=== PATIENT | female | born 2000 | race Caucasian/White ===

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

== ENCOUNTER 2022-01-10 20:12 | Emergency (ER) | payer BC, OTHER, SELFPAY ==
--- NOTE | ~2022-01-10 | XR_ITS ---
EXAMINATION: XR TOES, LEFT CLINICAL INFORMATION: Hematoma to great toe COMPARISON: None TECHNIQUE: 3 views of the left toes were obtained. FINDINGS: Osseous alignment is anatomic. No acute fracture is seen. There is soft tissue swelling dorsally near the interphalangeal joint of the great toe. XR/XR toe LT min 2V IMPRESSION: No fracture identified. Soft tissue swelling of the great toe near the interphalangeal joint.
[2022-01-10 21:10] VITALS: BP 101/61; PULSE 62; RESP 18; TEMP 36.3; O2SAT 100; BMI 21.4
--- NOTE | 2022-01-11 02:00 | PC.NURSE ---
at bedside for primary eval.
--- NOTE | 2022-01-11 02:01 | ED.GENADULT ---
HPI - General Adult General Chief complaint: General Medical Stated complaint: both big toes bleeding and purple Time Seen by Provider: 01/11/22 00:15 Source: patient Mode of arrival: ambulatory Limitations: no limitations History of Present Illness HPI narrative: toe is black and swollen for the past 2 weeks. Patient is unclear about what trauma occurred Onset (ago): week(s) Severity: mild Quality: aching Pain Consistency: constant Associated symptoms: denies other symptoms Related Data Previous Rx's Medication Instructions Recorded acetaminophen 500 mg tablet 500 mg PO Q6H PRN #30 tab 12/06/21 doxycycline monohydrate 100 mg 100 mg PO BID 7 Days #14 cap 12/06/21 capsule ibuprofen 400 mg tablet 400 mg PO Q6-8H PRN #30 tab 12/06/21 naproxen 500 mg tablet (Naprosyn) 500 mg PO BID #20 tab 01/11/22 Allergies Allergy/AdvReac Type Severity Reaction Status Date / Time No Known Allergies Allergy Verified 01/10/22 21:10 Review of Systems Constitutional: Constitutional: Reports no additional constitutional complaints Eyes: Eyes: Reports no additional eye complaints ENT: Denies dizziness Cardiovascular: Cardiovascular: Reports no additional cardiovascular complaints Respiratory: Respiratory: Reports as per HPI Gastrointestinal: Gastrointestinal: Reports no additional gastrointestinal complaints Genitourinary: Genitourinary: Reports no additional female genitourinary complaints Musculoskeletal: Musculoskeletal: Reports no additional musculoskeletal complaints Integumentary/Breasts: Skin/Breast: Denies rash Neurologic: Reports system reviewed and no additional complaints, except as documented, Denies dizziness and Denies Sensory deficit (Neuro) Psychiatric: Psychiatric: Denies anxiety [facility] Social History Social History Patient Tobacco Use Status: Never used Tobacco Advance Directives: No Advance Directives Information Provided: No Physical Exam ED Vital Signs: Vital Signs - 24 hr 01/10/22 21:10 01/11/22 02:39 Temperature 97.4 F 98.3 F Pulse Rate 62 55 Respiratory Rate 18 16 Blood Pressure 101/61 100/52 L Pulse Oximetry 100 100 BMI result Body Mass Index 21.4 Const General: healthy appearing Nutritional Appearance: average body habitus Orientation/consciousness: oriented to person and patient oriented x3 Limitations: no limitations HENMT Head: Yes normal to inspection Ears: external ears normal General nose exam: Normal external nose present Mouth: Normal oral and palatal mucosa present and oropharynx normal Throat: Yes posterior oropharynx normal Eyes General: appearance normal, both eyes and all related structures Neck Neck: Yes normal visual inspection General: Yes no CVA tenderness Back/Spine/Pelvis Back: no CVA tenderness Skin Other: ecchymosis to great toe and blood under the nail Neuro General: oriented to person and patient oriented x3 Cranial nerves: Yes CN's II-XII intact bilaterally Motor exam (neuro): 5/5 motor strength present throughout Sensory Exam: No Sensory deficit (Neuro) Extrem Other: echymosis and tenderness to base of toe nail, no erythema or signs of infection. Psych Appearance: grossly normal Course Reevaluation(s) Reevaluation #1: patient with contusion to toe with small subungual hematoma, will dc on ice and nsaids Time: 03:24 Medical Decision Making Imaging Data toe xray: Radiologist's impression: IMPRESSION: No fracture identified. Soft tissue swelling of the great toe near the interphalangeal joint. Discharge Plan Discharge Clinical Impression: Contusion of great toe Patient Disposition: Home, Self-Care Instructions: Subungual Hematoma (ED), Contusion in Adults (ED) Prescriptions: New naproxen [Naprosyn] 500 mg tablet 500 mg PO BID Qty: 20 0RF No Action doxycycline monohydrate 100 mg capsule 100 mg PO BID 7 Days Qty: 14 0RF acetaminophen 500 mg tablet 500 mg PO Q6H PRN (Reason: pain) Qty: 30 0RF ibuprofen 400 mg tablet 400 mg PO Q6-8H PRN (Reason: pain) Qty: 30 0RF Referrals: Physician,None [Primary Care Provider] - 1 week
[2022-01-11 02:39] VITALS: BP 100/52; PULSE 55; RESP 16; TEMP 36.8; O2SAT 100
--- NOTE | 2022-01-11 02:43 | PC.NURSE ---
XRay at bedside.
== END 2022-01-11 03:44 | disposition home or self-care (01) ==
PROVIDERS: Emergency Provider Emergency Medicine
DX: S90.211A Contusion of right great toe with damage to nail, initial encounter (principal); S90.212A Contusion of left great toe with damage to nail, initial encounter; X58.XXXA Exposure to other specified factors, initial encounter; Y93.9 Activity, unspecified; Y92.9 Unspecified place or not applicable; Y99.9 Unspecified external cause status
CPT/HCPCS: 73660; 99282; 99283

== ENCOUNTER 2025-06-30 10:12 | Outpatient (REF) | payer OTHER, SELFPAY ==
--- OUTSIDE RECORDS SUMMARY | 2025-06-30 09:00 | XMS_ITS | Encounter Summary ---
Author Organization [employer] Address [address] [place] [address] Care Team Providers Care Overnight Stocker Name Role Phone Chris Maria G PRESCHOOL AIDE Primary Care Provider [phone] Encounter Details Date Type Department Care Team ([facility] st Contact Info) Description 06/30/2025 9:00 AM EST Office Visit [facility] [address] [place] [address] Maria G Perez FNP [address] [place] [address] Adult wellness visit (Primary Dx); Encounter for vaccination; Encounter for immunization Social History Tobacco Use Types Packs/Day Years Used Date Smoking Tobacco: Never Smokeless Tobacco: Current Tobacco Cessation:Ready to Q uit: Not Asked; Counseling Given: Not Answered Comments:Once daily Alcohol Answer Date Recorded How often do you have a drink containing alcohol ? 1 06/30/2025 How many drinks containing a lcohol do you have on a typical day when you are drinking? 0 06/30/2025 How often do you have six or more drinks on one occasion? 0 06/30/2025 Depression Answer Date Recorded Patient Health Questionnaire-9 Score 1 06/30/2025 Patient Health Questionnaire-9 Score 1 06/30/2025 Last PHQ-9: Questionnaire Data Not on file 1 08/30/2024 Housing Stability Answer Date Recorded What is your housing situation today? I have conchita abdi 06/30/[address] you li ve. Do you have problems with any of the following? None of the above 06/30/2025 Food Insecurity Answer Date Recorded Within the past 12 months, y ou worried that your food would run out before you got money to buy more: Never True 06/30/2025 Within the past 12 months,th e food you bought just didn't last and you didn't have enough money to get more: Never True 07/2025 Transportation Answer Date Recorded In the past 12 months, has l ack of transportation kept you from medical appts, meetings, work or from getting things needed for daily living? No 06/30/2025 Utilities Answer Date Recorded In the past 12 months, has t he electric, gas, oil or water company threatened to shut off services in your home? No 06/30/2025 Depression Answer Date Recorded Patient Health Questionnaire-2 Score 0 06/30/2025 Internet Access Answer Date Recorded Internet Access Q1 Yes 06/30/2025 Internet Access Q2 Not on file 06/30/2025 Comments Unknown Sex and Gender Information Value Date Recorded Sex Assigned at Female 06/18/2022 10:20 AM EDT Legal Sex Female 10:20 AM EDT Gender Identity Female 04/16/2025 3:51 PM EDT Sexual Orientation Straight 06/18/2022 10 :20 AM EDT documented as of this encounter Last Filed Vital Signs Vital Sign Reading Time Taken Comments Blood Pressure 100/62 06/30/2025 9:02 AM EST Pulse 64 06/30/2025 9:02 AM EST Temperature 36.7 C (98 F) 06/30/2025 9:02 AM EST Respiratory Rate 14 06/30/2025 9:02 AM EST Oxygen Saturation 97% 06/30/2025 9:02 AM EST Inhaled Oxygen Concentration - - Weight 61.9 kg (136 lb 9 oz) 06/30/2025 9:02 AM EST Height 167.6 cm (5' 6 ) 06/30/2025 9:02 AM EST Body Mass Index 22.04 06/30/2025 9:02 AM EST documented in this encounter Functional Status * Over the past 2 weeks, how often have you been bothered by any of the following problems? Question Answer Date of Assessment Author Patient Health Questionnaire -2 Score 0 06/30/2025 9:04 AM EST Chel Perry MA * Little interest or pleasure in doing things Answer Date of Assessment Author Not at all 06/30/2025 9:04 AM EST Oscar Perry MA * Feeling down, depressed, or hopeless Answer Date of Assessment Author Not at all 06/30/2025 9:04 AM Oscar Kessler MA * Trouble falling or staying asleep, or sleeping too much Answer Date of Assessment Author Not at all 06/30/2025 9:04 AM Oscar Kessler MA * Feeling tired or having little energy Answer Date of Assessment Author Not at all 06/30/2025 9:04 AM Oscar Kessler MA * Poor appetite or overeating Answer Date of Assessment Author Several days 06/30/2025 9:04 AM Oscar Kessler MA * Feeling bad about yourself - or that you are a failure or have let yourself or your family down Answer Date of Assessment Author Not at all 06/30/2025 9:04 AM Oscar Kessler MA * Trouble concentrating on things, such as reading the newspaper or watching television Answer Date of Assessment Author Not at all 06/30/2025 9:04 AM Oscar Kessler MA * Moving or speaking so slowly that other people could have noticed? Or the opposite - being so fidgety or restless that you have been moving around a lot more than usual. Answer Date of Assessment Author Not at all 06/30/2025 9:04 AM Oscar Kessler MA * Thoughts that you would be better off or hurting yourself in some way Answer Date of Assessment Author Not at all 06/30/2025 9:04 AM Oscar Kessler MA * Patient Health Questionnaire-9 Score Answer Date of Assessment Author 1 06/30/2025 9:04 AM Oscar Kessler MA * Over the last 2 weeks, how often have you been bothered by any of the following problems? Question Answer Date of Assessment Author Feeling nervous, anxious, or on edge 0 06/30/2025 10:02 AM Chel Kessler MA Not being able to stop or co ntrol worrying 0 06/30/2025 10:02 AM Chel Kessler MA Worrying too much about diff erent things 1 06/30/2025 10:02 AM Chel Kessler MA Trouble relaxing 0 06/30/2025 10:02 AM Chel Kessler MA Being so restless that it is hard to sit still 0 06/30/2025 10:02 AM Chel Kessler MA Becoming easily annoyed or irritable 0 06/30/2025 10:02 AM Chel Kessler MA Feeling afraid as if somethi ng awful might happen 0 06/30/2025 10:02 AM Chel Kessler MA MANUEL-7 Total Score 1 06/30/2025 10:02 AM Chel Kessler MA * How difficult have these problems made it for you to do your work, take care of things at home, or get along with other people? Answer Date of Assessment Author Not difficult at all 06/30/2025 9:04 AM Chel Deleon MA documented as of this encounter Plan of Treatment Upcoming Encounters Date Type Department Care Team (Late st Contact Info) Description 07/07/2025 9:30 AM EST Clinical Support [facility] [address] [place] [id number] Scheduled Orders Name Type Priority Associated Diagnoses Orde r Schedule Chlamydia/N. Gonorrhoeae, PCR, Urine Lab Routine Adult wellness visit Ordered: 06/30/2025 Comprehensive Metabolic Panel Lab Routine Adult wellness visit Expected: 06/30/2025 (Approximate), Expires: 06/30/2026 Hepatitis B Core Antibody, Total Lab Routine Adult wellness visit Expected: 06/30/2025 (Approximate), Expires: 06/30/2026 Hepatitis B Surface Antibody, Qualitative Lab Routine Adult wellness visit Expected: 06/30/2025 (Approximate), Expires: 06/30/2026 Hepatitis B surface antigen, EIA Lab Routine Adult wellness visit Expected: 06/30/2025 (Approximate), Expires: 06/30/2026 Hepatitis C Antibody with Reflex to HCV, RNA, Quantitative, Real-Time PCR Lab Routine Adult wellness visit Expected: 06/30/2025, Expires: 06/30/2026 CBC auto differential Lab Routine Adult wellness visit Expected: 06/30/2025 (Approximate), Expires: 06/30/2026 HIV-1/2 Antigen and Antibodies, Fourth Generation, with Reflexes Lab Routine Adult wellness visit Expected: 06/30/2025 (Approximate), Expires: 06/30/2026 Lipid Panel, Standard Lab Routine Adult wellness visit Expected: 06/30/2025 (Approximate), Expires: 06/30/2026 Vitamin D, 25-Hydroxy, Total, Immunoassay Lab Routine Adult wellness visit Expected: 06/30/2025 (Approximate), Expires: 06/30/2026 T-SPOT .TB Lab Routine Adult wellness visit Expected: 06/30/2025 (Approximate), Expires: 06/30/2026 documented as of this encounter Visit Diagnoses Diagnosis Adult wellness visit- Primary Encounter for vaccination Encounter for immunization documented in this encounter Additional Health Concerns Assessment Noted Time PHQ-9 Depression Total Score: 1 06/30/20 9:04 AM EST documented as of this encounter Care Teams Overnight Stocker Relationship Specialty Start Date End Date Maria G Perez FNP [address] [place] [id number] PCP - General Family Medicine 06/30/25 documented as of this encounter
[2025-06-30 11:59] LABS: MANUAL DIFF FLAG NO
--- OUTSIDE RECORDS SUMMARY | 2025-06-30 12:01 | XMS_ITS | Clinical Summary ---
Author Organization [facility] Address [address] [place] [address] Phone Care Team Providers Care Firefighter Type One Name Role Phone Unavailable Primary Care Provider Unavailabl e Immunizations Immunization Administration Dates Next Due DTaP 5 04/15/2006, 3,07/08/2002,05/04/2002 ,03/03/2002 Hep B, ped/adol 10/01/2002,02/02/2002,2001 Hib (PRP-T) 04/02/2003,07/08/2002,05/04/2002 ,03/03/2002 IPV 04/15/2006,10/01/2002,05/04/2002 ,03/03/2002 Influenza, injectable, trivalent 08/06/2003 MMR 04/15/2006,01/05/2003 Pneumococcal Conjugate 08/06/2003,07/08/2002,,03/03/2002 Varicella 01/05/2003 Social History Tobacco Use Types Packs/Day Years Used Date Smoking Tobacco: Never Assessed Comments Unknown Sex and Gender Information Value Date Recorded Sex Assigned at Not on file Legal Sex Female 4:22 PM EDT Gender Identity Not on file Sexual Orientation Not on file Plan of Treatment Health Maintenance Due Date Last Done Comments Varicella Vaccines (2 of 2 - 2-dose childhood series) 05/13/2006 01/05/2003 DTaP,Tdap,and Td Vaccines (6 - Tdap) 2012 04/15/2006, 08/06/2003, 07/08/2002, Additional history exists HPV Vaccines (1 - 3-dose series) 2016 Men B Vaccine (1 of 2 - Standard) 2017 Influenza Vaccines (#1) 2025 08/06/2003 COVID-19 Vaccine ( season) 2025 Hepatitis B Vaccines Completed 10/01/2002, 02/02/2002, 2001 HIB Vaccines Completed 04/02/2003, 06/20, 05/04/2002, Additional history exists Pneumococcal Vaccine Completed 08/06/2003, 07/08/2002, 05/04/2002, Additional history exists IPV Vaccines Completed 04/15/2006, 09/19, 05/04/2002, Additional history exists MMR Vaccines Completed 04/15/2006, 01/05/2003 Hepatitis A Vaccines Aged Out No long er eligible based on patient's age to complete this topic Meningococcal Vaccine Aged Out No gaurav loni eligible based on patient's age to complete this topic
--- OUTSIDE RECORDS SUMMARY | 2025-06-30 12:01 | XMS_ITS | Encounter Summary ---
Author Organization [facility] Address [address] [place] [phone] Phone Care Team Providers Care Player Services Representative Name Role Phone Gayathri Way NP Primary Care Provider Naveen preston Encounter Details Date Type Department Care Team (Late st Contact Info) Description 04/04/2017 Conversion Encounter [facility] - [address] [address] Social History Tobacco Use Types Packs/Day Years Used Date Smoking Tobacco: Never Assessed Comments Unknown Sex and Gender Information Value Date Recorded Sex Assigned at Not on file Legal Sex Female 4:22 PM EDT Gender Identity Not on file Sexual Orientation Not on file documented as of this encounter Plan of Treatment Not on file documented as of this encounter Visit Diagnoses Not on filedocumented in this encounter Care Teams Player Services Representative Relationship Specialty Start Date End Date Gayathri Way NP PCP - General 03/29/17 09/27/22 documented as of this encounter
--- OUTSIDE RECORDS SUMMARY | 2025-06-30 12:01 | XMS_ITS | Encounter Summary ---
Author Organization [employer] Address [address] [place] [address] Care Team Providers Care Management Supervisor Name Role Phone Maria G Perez MAIL HANDLER Primary Care Provider [phone] Encounter Details Date Type Department Care Team (Latest Contact Info) Description 06/30/2025 Travel Social History Tobacco Use Types Packs/Day Years Used Date Smoking Tobacco: Never Smokeless Tobacco: Current Comments:Once daily Alcohol Answer Date Recorded How [...] AM EDT documented as of this encounter Functional Status * Over the past 2 weeks, how often have you been bothered by any of the following problems? Question Answer Date of Assessment Author Patient Health Questionnaire -2 Score 0 06/30/2025 9:04 AM Chel Kessler MA * Little interest or pleasure in doing things Answer Date of Assessment Author Not at all 06/30/2025 9:04 AM Oscar Kessler MA * Feeling down, depressed, or hopeless [...] Description 07/07/2025 9:30 AM EST Clinical Support [facility] [address] [place] [address] documented as of this encounter Visit Diagnoses Not on filedocumented in this encounter Additional Health Concerns Assessment Noted Time PHQ-9 Depression Total Score: 1 06/30/20 9:04 AM EST documented as of this encounter Care Teams Management Supervisor Relationship Specialty Start Date End Date Maria G Perez FNP [address] [place] [address] PCP - General Family Medicine 06/30/25 documented as of this encounter
--- OUTSIDE RECORDS SUMMARY | 2025-06-30 12:01 | XMS_ITS | Clinical Summary ---
Author Organization [employer] Address [address] [place] [address] [address] [place] [address] Care Team Providers Care Marketing Liaison Name Role Phone Maria G Perez Primary Care Provider [phone] Medications No known medications Active Problems No known active problems Encounters Date Type Department Care Team Description 06/30/2025 9:00 AM EST Office Visit [address] [address] Maria G Perez FNP Adult wellness visit (Primary Dx); Encounter for vaccination; Encounter for immunization 06/30/2025 Travel 06/29/[address] [address] Maria G Perez FNP Chart Prep 06/23/2025 Patient Outreach [facility] [address] [place] [address] Maria G Perez FNP Pre-visit Planning ([facility]OH unable to reach [facility]) 05/18/[address] [address] Gianluca Baig MD Call Back Request; [facility] - New Patient Assistance 04/16/[address] [address] Gianluca Baig MD New Patient Request from Last 3 Months Immunizations Immunization Administration Dates Next Due DTaP, 5 pertussis antigens 04/15/2006,,07/08/2002,2001,03/03/2002 Hep B, Adolescent or Pediatric 10/01/2002,2001,2001 Hib (PRP-T) 04/02/2003, 2,05/04/2002,2001 IPV 04/15/2006, 3,05/04/2002,2001 Influenza Injectable Quadriv alant Preservative Free IIV4 MDCK 09/28/2020 Influenza, IIV3, injectable 08/06/2003 Influenza, seasonal, injecta ble, preservative free 06/30/2025 MMR 04/15/2006,01/05/2003 Pfizer Covid-19 Vaccine 12+ 06/30/2025 Pneumococcal Conjugate PCV 7 08/06/2003, 07/08/2002,05/04/2002,2001 Varicella 01/05/2003 Family History Medical History Relation Name Comments Cancer Maternal Grandmother Hypertension Mother Relation Name Status Comments Maternal Grandmother Mother Social History Tobacco Use Types Packs/Day Years [...] Orientation Straight 06/18/2022 10 :20 AM EDT Last Filed Vital Signs Vital Sign Reading [...] Mass Index 22.04 06/30/2025 9:02 AM EST Plan of Treatment Upcoming Encounters Date Type Department Care Team (Late st Contact Info) Description 07/07/2025 9:30 AM EST Clinical Support [address] [address] Health Maintenance Due Date Last Done Comments Chlamydia and Gonorrhea Screening 2001 HIV Screening 2001 Lipid Panel 2001 Meningococcal Vaccine (1 - Risk 2-dose series) 12/31/2003 Meningococcal B Vaccine (1 of 4 - Increased Risk) 12/31/2011 DTaP/Tdap/Td Vaccines (6 - Tdap) 2012 04/15/2006, 08/06/2003, 07/08/2002, Additional history exists Family Planning (PISQ) 2016 HPV Vaccines (1 - 3-dose series) 2016 Hepatitis C Screening 12/31/2019 Pap Smear 2022 Alcohol/Substance Use Screening 06/30/2026 06/30/2025 Depression Screening 06/30/2026 06/30/2025, 06/30/20 Disability Screening 06/30/2026 06/30/2025 SDOH Screening 06/30/2026 06/30/2025 Tobacco Screening 06/30/2026 06/30/2025 Zoster Vaccines (1 of 2) 12/31/2051 RSV Patients and Patients Aged 60 years or older (1 - 1-dose 75+ series) 2076 Hepatitis B Vaccines Completed 10/01/2002, 02/02/2002, 2001 HIB Vaccines Completed 04/02/2003, 06/20, 05/04/2002, Additional history exists Pneumococcal Vaccine: Pediatrics (0 to 5 Years) and At-Risk Patients (6 to 49) Years Aged Out 08/06/2003, 07/08/2002, 05/04/2002, Additional history exists No longer eligible based on patient's age to complete this topic IPV Vaccines Completed 04/15/2006, 09/19, 05/04/2002, Additional history exists COVID-19 Vaccine Completed 06/30/2025 Influenza Vaccine Completed 06/30/2025, , 08/06/2003 Hepatitis A Vaccines Aged Out No long er eligible based on patient's age to complete this topic RSV under 20 months Aged Out No longe r eligible based on patient's age to complete this topic Rotavirus Vaccines Aged Out No longer eligible based on patient's age to complete this topic Insurance [facility] [place] [id number] Care Teams Marketing Liaison Relationship Specialty Start Date End Date Maria G Perez FNP [address] [place] [phone] PCP - General Family Medicine 06/30/25
--- OUTSIDE RECORDS SUMMARY | 2025-06-30 12:01 | XMS_ITS | Encounter Summary ---
Author Organization [employer] Address [address] [place] [address] Care Team Providers Care Insight Leader Name Role Phone Unavailable Primary Care Provider Unavailabl e Reason for Visit * Reason Onset Date Comments Chart Prep 06/29/2025 Encounter Details Date Type Department Care Team ([facility] st Contact Info) Description 06/29/2025 Telephone [facility] [address] [place] [address] Maria G Perez FNP [address] [place] [address] Chart Prep Social History Tobacco Use Types Packs/Day Years Used Date Smoking Tobacco: Never Assessed Alcohol Answer Date Recorded How often do [...] enough money to get more: Never True 11/ 07/2025 Transportation Answer Date Recorded In the [...] AM EDT documented as of this encounter Miscellaneous Notes * Telephone Encounter - Laurie Cline MA - 06/29/2025 9:19 AM EST Chart Prep Labs: not applicable Images: not applicable Referrals: not applicable Vaccines due: Covid, Flu, Tdap, MCV4, and HPV Screenings: pap smear and Hep C, HIV, Chlamydia and Gonorrhea. LMP. Overdue care gaps: SBIRT, SDOH, PHQ-9, MANUEL-7, Oral health screening, Disability screen, and Tobacco documented in this encounter Plan of Treatment Upcoming Encounters Date Type Department Care Team (Late st Contact Info) Description 07/07/2025 9:30 AM EST Clinical Support [facility] [address] [place] [phone] documented as of this encounter Visit Diagnoses Not on filedocumented in this encounter
[2025-06-30 12:10] LABS: Hematocrit 40.6 % (37.0-47.0); Hemoglobin 12.9 g/dl (12.0-16.0); Imm Gran Abs Auto 0.01 X10*3/uL (0.00-0.03); Imm Gran Pct Auto 0.2 % (0.0-0.4); Lymphocytes Absolute Auto 2.4 X10*3/uL (1.2-4.9); Mean Corpuscular HGB Conc 31.8 g/dl (31.0-35.0); Mean Corpuscular Hemoglobin 29.1 pg (27.0-33.0); Mean Corpuscular Volume 91.6 fL (80.0-98.0); NRBC Abs Auto 0.000 X10*3/uL (0.0-0.012); NRBC Pct Auto 0.0 /100WBC (0.0-0.2); Platelet Count 348 X10*3/uL (160-400); Red Blood Count 4.43 X10*6/uL (4.20-5.50); White Blood Count 5.2 X10*3/uL (4.8-10.8)
[2025-06-30 12:57] LABS: HBS Num1 2.50 mIU/mL (0-7.99); HBc Num1 0.11 S/CO (0.00-0.79); HBsAGNum1 0.39 S/CO (0.00-0.99); HIV Num 1 0.06 S/CO (0.00-0.99); Hepatitis B Surface Antigen Negative (Negative); ~HepC Num1 0.06 S/CO (0.00-0.79); ~Hepatitis B Surface Antibody NONREACTIVE (Nonreactive); ~Hepatitis C Antibody Nonreactive (Nonreactive)
[2025-06-30 13:07] LABS: Alanine Aminotransferase 20 U/L (0-31); Albumin Level 5.3 g/dL (3.5-5.0); Alkaline Phosphatase 67 U/L (39-117); Anion Gap 11 (12-20); Aspartate Amino Transferase 30 U/L (5-31); Blood Urea Nitrogen 12 mg/dL (9-16); Calcium 9.8 mg/dL (8.4-10.2); Carbon Dioxide 26 mmol/L (22-29); Chloride 105 mmol/L (96-108); Cholesterol 199 mg/dL (<200); Estimated Glomerular Filt Rate > 60; HDL Cholesterol 80 mg/dL (>40); Potassium 3.8 mmol/L (3.3-5.1); Sodium 138 mmol/L (135-145); Total Protein 8.2 g/dL (6.5-8.0); Triglycerides 45 mg/dL (<150)
[2025-06-30 13:52] LABS: CT PCR Urine NOT DETECTED (Not Detect.); NG PCR Urine NOT DETECTED (Not Detect.)
[2025-07-03 18:03] LABS: TS Negative Control Passed; TS Panel A 0; TS Panel B 0; TS Positive Control Passed; TSpotTB Negative (Negative)
== END 2025-06-30 10:13 | disposition home or self-care (01) ==
LOC: HO.HHCL 10:12
PROVIDERS: PCP Nurse Practitioner Family; Visit Provider Nurse Practitioner Family
DX: Z00.00 Encounter for general adult medical examination without abnormal findings (principal); Z11.4 Encounter for screening for human immunodeficiency virus [HIV]; Z20.6 Contact with and (suspected) exposure to human immunodeficiency virus [HIV]; Z20.2 Contact with and (suspected) exposure to infections with a predominantly sexual mode of transmission; Z13.21 Encounter for screening for nutritional disorder; Z13.6 Encounter for screening for cardiovascular disorders
CPT/HCPCS: 80053; 80061; 82306; 85025; 86481; 86704; 86706; 86803; 87340; 87389; 87491; 87591

== ENCOUNTER 2025-07-27 08:49 | Inpatient (IN) | payer OTHER, SELFPAY ==
[2025-07-27] VITALS (14 sets, daily range): BP systolic 94–123; BP diastolic 50–74; PULSE 78–120; RESP 15–27; TEMP 36.7–39.5; O2SAT 95–100; BMI 21.9
--- NOTE | ~2025-07-27 | CT_ITS ---
EXAMINATION: CT ABDOMEN PELVIS WITH IV CONTRAST HISTORY: urinary sx septic COMPARISON: There are no prior studies for available comparison. TECHNIQUE: CT scan of the abdomen and pelvis was performed following administration of 85 mL Omnipaque 350 using standard departmental protocol. Coronal and sagittal reformatted images were generated and reviewed. Oral contrast material was not administered at the request of the referring physician. This CT exam was performed with one or more of the following dose reduction techniques: automated exposure control, adjustment of the mA and/or kV according to patient size, use of iterative reconstruction technique. DLP: 110 mGy-cm FINDINGS: LOWER CHEST: The visualized lung bases are clear. There is no pleural effusion. CARDIOVASCULATURE: The heart is normal in size. There is no pericardial effusion. LIVER: The liver is normal in size and contour. No liver mass is identified. The hepatic and portal veins are patent. There is periportal edema. GALLBLADDER / BILE DUCTS: There is pericholecystic fluid. No calcified gallstones are identified. There is no intra or extrahepatic biliary ductal dilatation. SPLEEN: The spleen is normal in size. No focal splenic lesion is identified. PANCREAS: The pancreas is unremarkable in appearance. ADRENAL GLANDS: Within normal limits. KIDNEYS/RETROPERITONEUM: There is heterogeneous perfusion of the right kidney, consistent with acute pyelonephritis. No renal calculi are identified. There is no hydronephrosis. No renal masses are identified. LYMPH NODES: No abdominal or pelvic lymphadenopathy. VASCULATURE: The abdominal aorta is normal in caliber. MESENTERY/PERITONEUM: There is right perinephric edema as well as fluid in the right paracolic gutter. There is no free intraperitoneal gas. STOMACH: The stomach is collapsed, limiting evaluation. SMALL BOWEL: The small bowel is normal in caliber. COLON: The colon is unremarkable. APPENDIX: Normal. URINARY BLADDER/PELVIC ORGANS: The urinary bladder is unremarkable. The uterus and ovaries are unremarkable. BONES / SOFT TISSUES: No suspicious bony or soft tissue abnormalities. CT/CT abdomen pelvis w IV con IMPRESSION: Acute right pyelonephritis. Electronically signed by: Eric North MD 07/27/2025 10:47 AM [facility] [facility] [place]
--- NOTE | ~2025-07-27 | US_ITS ---
EXAMINATION: US ABDOMEN LIMITED CLINICAL INFORMATION: Elevated LFTs. COMPARISON: Correlated to CT dated August 06, 2025. TECHNIQUE: Real-time ultrasound of the gallbladder using grayscale and color Doppler technique. FINDINGS: Gallbladder is contracted. Trace of pericholecystic fluid. Gallbladder wall measures 2 m maximal thickness. Common bile duct measures 2 mm. No gross ascites, right upper quadrant abdomen. US/US abdomen limited IMPRESSION: Contracted gallbladder. No cholelithiasis. Trace of pericholecystic fluid. Normal common bile duct. Electronically signed by: Matt Smith MD 07/28/2025 03:57 PM EST
--- NOTE | 2025-07-27 09:19 | ECG_ITS ---
Test Reason : TACHYCARDIA Blood Pressure : */* mmHG Vent. Rate : 109 BPM Atrial Rate : 109 BPM P-R Int : 150 ms QRS Dur : 72 ms QT Int : 302 ms P-R-T Axes : 75 97 13 degrees QTcB Int : 406 ms Sinus tachycardia Rightward axis Borderline ECG No previous ECGs available Referred By: Alma Coreas Electronically Signed By: JES BARR MD
[2025-07-27 09:39] LABS: MANUAL DIFF FLAG NO
[2025-07-27 09:40] LABS: Hematocrit 35.5 % (37.0-47.0); Hemoglobin 11.9 g/dl (12.0-16.0); Imm Gran Abs Auto 0.08 X10*3/uL (0.00-0.03); Imm Gran Pct Auto 0.5 % (0.0-0.4); Lymphocytes Absolute Auto 1.2 X10*3/uL (1.2-4.9); Mean Corpuscular HGB Conc 33.5 g/dl (31.0-35.0); Mean Corpuscular Hemoglobin 29.2 pg (27.0-33.0); Mean Corpuscular Volume 87.2 fL (80.0-98.0); NRBC Abs Auto 0.000 X10*3/uL (0.0-0.012); NRBC Pct Auto 0.0 /100WBC (0.0-0.2); Platelet Count 304 X10*3/uL (160-400); Red Blood Count 4.07 X10*6/uL (4.20-5.50); White Blood Count 15.3 X10*3/uL (4.8-10.8)
[2025-07-27] MEDS: 0.9 % Sodium Chloride 1,845 ML 1845 ML IV (09:40)
[2025-07-27 09:45] LABS: UPreg QC Valid YES
--- NOTE | 2025-07-27 09:50 | ED_ITS ---
HPI - Female Genitourinary General Chief complaint: Urogenital-Female Stated complaint: Urinary Symptoms Time Seen by Provider: 07/27/25 09:19 Source: patient Mode of arrival: ambulatory Limitations: no limitations History of Present Illness ED Provider: PAT Garcia HPI Narrative: Chief Complaint: ?Urinary frequency, burning, and pelvic discomfort.? History of Present Illness: 24-year-old female presents with three days of worsening urinary symptoms. She was evaluated at an urgent care on for a urinary tract infection and started on oral Bactrim, with initial improvement. She has been taking Bactrim as prescribed. Over the past few days, symptoms have progressively worsened reports right rib pain . She reports urinary frequency, dysuria/burning, pelvic discomfort, and subjective fevers with chills. She denies flank pain. She ?does not feel well at all.? Related Data Previous Rx's ?Medication ?Instructions ?Recorded acetaminophen 500 mg tablet 500 mg PO Q6H PRN pain #30 tabs 12/06/21 doxycycline monohydrate 100 mg 100 mg PO BID 7 days #1 4 caps 12/06/21 capsule ibuprofen 400 mg tablet 400 mg PO Q6-8H PRN pain #30 tabs 12/06/21 naproxen 500 mg tablet (Naprosyn) 500 mg PO BID #20 ta bs 01/11/22 Allergies Allergy/AdvReac Type Severity Reaction Status Date / Time No Known Allergies Allergy Verified 07/27/25 09:16 Review of Systems 2 Review of Systems: Yes all other systems are reviewed and are negative PMFSH Past Medical History Attestation statement: The following information was validated with the patient. Source: old records reviewed and nursing notes reviewed Social History Social History Patient Tobacco Use Status: Never used Tobacco Smoked in Last 30 Days: No Use of substances other than those prescribed or required for medical reasons: No Advance Directives: No Advance Directives Information Provided: Yes Patient : No Physical Exam 2 Exam: Exam: Appearance: Alert.? Oriented X3.? No acute distress.? Head: Normocephalic, atraumatic, no step-offs or deformities Eyes: Pupils equal, round and reactive to light.? Neck: Normal inspection.? Neck supple.? CVS: Normal heart rate and rhythm.? Pulses normal.? Respiratory: No respiratory distress.? Breath sounds normal.? Abdomen: Soft and nontender.? Skin: Skin warm and dry.? Normal skin color.? Normal skin turgor.? Extremities: No lower extremity edema.? No calf ttp. 5/5 strength to bilateral upper and lower extremities Back: No midline tenderness, no C-spine tenderness, full range of motion, no CVA tenderness bilaterally Neuro: Oriented X 3.? No motor deficit.? No sensory deficit. CN 2-12 intact Vital Signs: Vital Signs: Last Vital Signs Temp 99.0 F 07/27/25 09:48 Pulse 97 07/27/25 10:08 Resp 18 07/27/25 10:08 BP 115/74 07/27/25 10:08 Pulse Ox 100 07/27/25 10:08 O2 Del Method Room Air 07/27/25 10:08 BMI result Body Mass Index 21.9 vss Course Reevaluation(s) Reevaluation #1: Chemistry with no acute electrolyte abnormalities needing intervention. She is noted to have a slight bump in her transaminases likely secondary to sepsis. Her lactic acid is elevated 2.3. CBC with leukocytosis and left shift. Sepsis focused exam done. Patient's blood pressure responding well to fluids. Time: 10:00 Reevaluation #2: Patient's CT showing right-sided pyelonephritis patient was covered with ceftriaxone. Plan will admit to the hospitalist team Time: 10:57 Medications Administered Discontinued Medications Generic Name Dose Route Start Last Admin Trade Name Freq PRN Reason Stop Dose Admin Sodium Chloride 1,845 mls @ 1,845 mls/hr 07/27/25 09:20 07/27/25 09:40 Ns 30 ml/kg infuse over 1 hr (1845 ml) 07/27/25 10:19 1,845 mls/hr IV Administration .Q1H STA Acetaminophen 1,000 mg in 100 mls @ 400 mls/hr 07/27/25 09:20 07/27/25 10:07 Ofirmev IV 07/27/25 09:34 Infused ONCE ONE Infusion Ceftriaxone Sodium 1 gm/ 50 mls @ 100 mls/hr 07/27/25 09:20 07/27/25 10:20 Sodium Chloride IV 07/27/25 09:49 Infused ONCE ONE Infusion Iohexol 100 ml 07/27/25 10:25 07/27/25 10:26 Iohexol 350 Mg/Ml 100 Ml Infus..Btl IV 07/27/25 10:26 85 ml ONCE ONE Administration Morphine Sulfate 4 mg 07/27/25 09:59 07/27/25 10:02 Morphine Sulfate 4 Mg/Ml Cartridge IVPUSH 07/27/25 10:00 4 mg ONCE ONE Administration Protocol Medical Decision Making Medical Decision Making [facility] Narrative: 0935 24-year-old female with urinary symptoms and abnormal vital signs concerning for evolving urosepsis. Problem #1: Suspected Urosepsis (complicated urinary tract infection) Assessment: Worsening urinary frequency, burning, pelvic discomfort, subjective fevers/chills, and abnormal vital signs (tachycardia, tachypnea, fever) despite outpatient Bactrim?concerning for progression to urosepsis. Plan: * Initiate empiric IV antibiotics: ceftriaxone 1 g IV x1 now. * Fluid resuscitation: 30 cc/kg bolus of normal saline. * Continue monitoring and reassess response to therapy. Differential Diagnosis Differential Diagnoses: The differential diagnosis associated with the presentation includes (Differential Diagnosis - Urosepsis / complicated urinary tract infection (primary) - Pyelonephritis - Antibiotic-resistant urinary tract infection - Non-infectious cystitis (e.g., interstitial cystitis) - Vaginitis (e.g., yeast or trichomonas) - Sexually transmitted infection (e.g., chlamydia, gonor) Admission/Observation Consideration of admission/observation: Escalation of care including admission/observation considered Lab Data [facility] Lab Attestation statement: I reviewed the patient's lab results. 07/27/25 09:26 Labs: Lab Results 07/27/25 07/27/25 Range/Units 09:26 09:26 WBC 15.3 H (4.8-10.8) X10*3/uL RBC 4.07 L (4.20-5.50) X10*6/uL Hgb 11.9 L (12.0-16.0) g/dl Hct 35.5 L (37.0-47.0) % MCV 87.2 (80.0-98.0) fL MCH 29.2 (27.0-33.0) pg MCHC 33.5 (31.0-35.0) g/dl RDW 14.3 (11.0-16.0) % Plt Count 304 (160-400) X10*3/uL MPV 9.8 (9.4-12.3) fL Immature Gran % (Auto) 0.5 H (0.0-0.4) % Neut % (Auto) 82.9 H (45-73) % Lymph % (Auto) 7.8 L (20-40) % [place] % (Auto) 8.4 (2-11) % Eos % (Auto) 0.1 (0-4) % Baso % (Auto) 0.3 (0-2) % Lymph # (Auto) 1.2 (1.2-4.9) X10*3/uL [place] # (Auto) 1.3 H (0.1-1.2) X10*3/uL Eos # (Auto) 0.0 (0.0-0.4) X10*3/uL Baso # (Auto) 0.0 (0.0-0.2) X10*3/uL Abs Immat Gran (auto) 0.08 H (0.00-0.03) X10*3/uL Absolute Neuts (auto) 12.7 H (2.0-8.3) x10*3/uL Absolute Nucleated RBC 0.000 (0.0-0.012) X10*3/uL Nucleated RBC % (auto) 0.0 (0.0-0.2) /100WBC Lactic Acid 2.3 H* Cancelled (0.5-2.0) mmol/L Magnesium 1.9 (1.6-2.6) mg/dL Total Bilirubin 0.9 (0.0-1.0) mg/dL Direct Bilirubin 0.3 (0.0-0.5) mg/dL AST 65 H (5-31) U/L ALT 45 H (0-31) U/L Alkaline Phosphatase 150 H (39-117) U/L Total Protein 7.9 (6.5-8.0) g/dL Albumin 4.5 (3.5-5.0) g/dL Lipase 20 (8-78) U/L Urine Test NEGATIVE (NEGATIVE) Influenza Type A (PCR) NEGATIVE (Negative) Influenza Type B (PCR) NEGATIVE (Negative) RSV RNA Qual (PCR) NEGATIVE (Negative) SARS-CoV-2 RNA (RT-PCR) NEGATIVE (Negative) Independent Interpretation I performed an independent interpretation of an: CT Scan (CT/CT abdomen pelvis w IV con IMPRESSION: Acute right pyelonephritis. ) Radiology Impression Discussion of test interpretation with radiology: I have reviewed the radiologist's reading. External Record Review External record reviewed: Inpatient record, Office record, Outpatient record, Prior outpatient labs, Prior outpatient radiology, Primary care record and Outside ED record Critical Care Time Critical Care Time Critical Care Time: Yes Total Critical Care Time: 35 Attestation: I attest to this time spent taking care of the patient, obtaining history, physical, reviewing labs, imaging, treatment of patients condition +/- specialist/hospitalist consult +/- procedure Discharge Plan Discharge Clinical Impression: Urinary tract infection, Pyelonephritis, Sepsis Patient Disposition: Admitted As Inpatient Print Language: Portuguese
[2025-07-27 09:57] LABS: Alanine Aminotransferase 45 U/L (0-31); Albumin Level 4.5 g/dL (3.5-5.0); Alkaline Phosphatase 150 U/L (39-117); Aspartate Amino Transferase 65 U/L (5-31); Lipase 20 U/L (8-78); Magnesium 1.9 mg/dL (1.6-2.6); Total Protein 7.9 g/dL (6.5-8.0)
[2025-07-27 10:21] LABS: Resp Syncy Virus RNA Qual PCR NEGATIVE (Negative); SARS COV2 PCR INHOUSE NEGATIVE (Negative)
[2025-07-27] MEDS: iohexoL 350 MG/ML 100 ML INFUS..BTL IV (10:26)
--- NOTE | 2025-07-27 11:31 | P.HPHOSP_ITS ---
History of Present Illness Date of Service: 07/27/25 Chief Complaint: pain 24 year old women with no significant medical history presented to the ED with worsening urinary symptoms. She was treated for a UTI last at an urgent care office. She was started on Bactrim. She felt better the first few days but then had returning right rib pain, urinary frequency, dysuria, burning, nausea, pelvic pain and fevers. She denied flank pain but abd ct showed acute pyelonephritis. She mentioned that this is her 3rd UTI. Noted to have elevated white blood cell count, fever, tachycardia, transaminitis, lactic acidosis. She was started on IV Rocephin and she will be admitted for management of acute pyelonephritis. Review of Systems 2 Review of Systems: Denies any recent fever chills or decrease in appetite respiratory denies any shortness of breath or cough cardiovascular denied chest pain gastrointestinal denies any dysphagia abdominal pain, vomiting or diarrhea genitourinary see HPI musculoskeletal denies any joint pain or swelling neuropsych denies any weakness or seizures all other systems reviewed are negative PMFSH Social History Patient Tobacco Use Status: Never used Tobacco Smoked in Last 30 Days: No Use of substances other than those prescribed or required for medical reasons: No Advance Directives: No Advance Directives Information Provided: Yes Patient : No Meds Allergies Allergy/AdvReac Type Severity Reaction Status Date / Time No Known Allergies Allergy Verified 07/27/25 09:16 Physical Exam 2 Vital Signs and Narrative: Vital Signs: Last Vital Signs Temp 98.6 F 07/27/25 11:08 Pulse 103 H 07/27/25 11:08 Resp 15 07/27/25 11:08 BP 103/52 L 07/27/25 11:08 Pulse Ox 97 07/27/25 11:08 O2 Del Method Room Air 07/27/25 11:08 BMI result Body Mass Index 21.9 Appearing in no acute distress head is normocephalic atraumatic eyes pupils are PERRLA sclera is anicteric mouth throat mucous membranes are intact and moist neck is supple no lymphadenopathy, no JVD noted lung sounds are clear to auscultation heart regular rate rhythm, clear S1, S2 positive bowel sounds, abdomen is soft, nontender neuro patient is alert x3, no focal deficits Results Labs 07/27/25 09:26 Labs: Laboratory Results - last 24 hr 07/27/25 07/27/25 09:26 09:26 MCV 87.2 MCH 29.2 MCHC 33.5 RDW 14.3 Plt Count 304 MPV 9.8 Immature Gran % (Auto) 0.5 H Neut % (Auto) 82.9 H Lymph % (Auto) 7.8 L [place] % (Auto) 8.4 Eos % (Auto) 0.1 Baso % (Auto) 0.3 Lymph # (Auto) 1.2 [place] # (Auto) 1.3 H Eos # (Auto) 0.0 Baso # (Auto) 0.0 Abs Immat Gran (auto) 0.08 H Absolute Neuts (auto) 12.7 H Absolute Nucleated RBC 0.000 Nucleated RBC % (auto) 0.0 Lactic Acid 2.3 H* Cancelled Magnesium 1.9 Total Bilirubin 0.9 Direct Bilirubin 0.3 AST 65 H ALT 45 H Alkaline Phosphatase 150 H Total Protein 7.9 Albumin 4.5 Lipase 20 Urine Test NEGATIVE Influenza Type A (PCR) NEGATIVE Influenza Type B (PCR) NEGATIVE RSV RNA Qual (PCR) NEGATIVE SARS-CoV-2 RNA (RT-PCR) NEGATIVE Imaging Radiologist's Impressions: Impressions Abdomen/Pelvis CT 07/27/25 10:24 IMPRESSION: Acute right pyelonephritis. Electronically signed by: Eric North MD 07/27/2025 10:47 AM [facility] [place] Assessment and Plan (1) Urinary tract infection: Status: Acute Plan 24 year old women admitted with acute pyelonephritis Severe sepsis secondary to Pyelonephritis fever, tachycardia, leukocytosis, lactic acidosis, transaminitis IV Rocephin Follow urine culture pain management as needed antiemetics IV fluids urology consultation for frequent UTIs Transaminitis likely secondary to sepsis DVT prophylaxis with Early ambulation Full code Quality Stroke Does the patient have a stroke diagnosis?: No VTE Prior VTE?: No VTE Risk Level:: Medical - moderate - high VTE Device Contraindication: Treatment Not Indicated VTE Drug Contraindication: Treatment Not Indicated
[2025-07-27 11:39] LABS: Reflex Lactate? Lactic Acid Added
[2025-07-27 12:21] LABS: Appearance Urine Clear; Glucose Urine UA Negative (Negative); PH 7.0 (5.0-9.0); Specific Gravity - Urine >= 1.030 (1.005-1.025)
--- NOTE | 2025-07-27 12:22 | PHA.MEDREC ---
Addendum entered by Familia Cohen RPh 07/27/25 12:38: Reviewed by [facility] Original Note: Pharmacy Consult ? Medication Reconciliation Pharmacy has completed the medication reconciliation. Spoke with pt and she confirmed her medications. Pt only taking a Sulfamethoxazole-Trimethoprim regimen for 7 days that she started 07/24 and nothing else at this time.
[2025-07-27 12:34] LABS: ~Lactic Acid-LAB USE ONLY 1.4 mmol/L (0.5-2.0)
--- NOTE | 2025-07-27 13:47 | P.CNUR_ITS ---
History of Present Illness Consult details Narrative: 24-year-old female presents with three days of worsening urinary symptoms. She was evaluated at an urgent care on for a urinary tract infection and started on oral Bactrim, with initial improvement. She has been taking Bactrim as prescribed. Over the past few days, symptoms have progressively worsened reports right rib pain . She reports urinary frequency, dysuria/burning, pelvic discomfort, and subjective fevers with chills. [facility] Social History Social History Patient Tobacco Use Status: Never used Tobacco Smoked in Last 30 Days: No Use of substances other than those prescribed or required for medical reasons: No Advance Directives: No Advance Directives Information Provided: Yes Patient : No Meds Allergies Allergy/AdvReac Type Severity Reaction Status Date / Time No Known Allergies Allergy Verified 07/27/25 09:16 Active Medications: Current Medications Acetaminophen (Acetaminophen 325 Mg Tablet) 650 mg PO Q6H PRN PRN Reason: Pain, Mild 1-3,fever,headache Calcium Carbonate (Calcium Carbonate 750 Mg Tab.Chew) 750 mg PO Q4H PRN PRN Reason: Heartburn Ceftriaxone Sodium 1 gm/ (Sodium Chloride) 50 mls @ 100 mls/hr IV Q24H KAMRON Ketorolac Tromethamine (Ketorolac Tromethamine 15 Mg/Ml Vial) 15 mg IVPUSH Q6H PRN PRN Reason: Pain, Moderate(Pain Scale 4-6) Magnesium Hydroxide (Milk Of Magnesia 30 Ml Oral.Susp) 30 ml PO DAILY PRN PRN Reason: Constipation Melatonin (Melatonin 3 Mg Tablet) 6 mg PO BEDTIME PRN PRN Reason: Insomnia Ondansetron HCl (Ondansetron Hcl 4 Mg/2 Ml Vial) 4 mg IVPUSH Q8H PRN PRN Reason: Nausea and Vomiting Oxycodone HCl (Oxycodone Hcl Immed Release 5 Mg Tablet) 5 mg PO Q6H PRN PRN Reason: Pain, Severe (Pain Scale 7-10) Sodium Chloride (0.9 % Sodium Chloride Flush 3 Ml Syringe) 3 ml IVFLUSH QSHIFT [facility] Home Medications ?Medication ?Instructions ?Recorded ?Confirmed ?Last Taken ?Type sulfamethoxazole 800 1 tab PO BID 07/27/2507/27/25 02:00 History mg-trimethoprim 160 mg tablet Physical Exam 2 Vital Signs: Vital Signs: Last Vital Signs Temp 98.5 F 07/27/25 12:00 Pulse 93 07/27/25 12:00 Resp 16 07/27/25 12:00 BP 106/59 L 07/27/25 12:00 Pulse Ox 100 07/27/25 12:00 O2 Del Method Room Air 07/27/25 12:00 BMI result Body Mass Index 21.9 Results Labs 07/27/25 09:26 Labs: Abnormal lab results 07/27/25 07/27/25 Range/Units 09: 12:12 WBC 15.3 H (4.8-10.8) X10*3/uL RBC 4.07 L (4.20-5.50) X10*6/uL Hgb 11.9 L (12.0-16.0) g/dl Hct 35.5 L (37.0-47.0) % Immature Gran % (Auto) 0.5 H (0.0-0.4) % Neut % (Auto) 82.9 H (45-73) % Lymph % (Auto) 7.8 L (20-40) % [place] # (Auto) 1.3 H (0.1-1.2) X10*3/uL Abs Immat Gran (auto) 0.08 H (0.00-0.03) X10*3/uL Absolute Neuts (auto) 12.7 H (2.0-8.3) x10*3/uL Lactic Acid 2.3 H* (0.5-2.0) mmol/L AST 65 H (5-31) U/L ALT 45 H (0-31) U/L Alkaline Phosphatase 150 H (39-117) U/L Ur Specific [place] >= 1.030 H (1.005-1.025) Short CBC 07/27/25 Range/Units 09: WBC 15.3 H (4.8-10.8) X10*3/uL Hgb 11.9 L (12.0-16.0) g/dl Hct 35.5 L (37.0-47.0) % Plt Count 304 (160-400) X10*3/uL Liver Function 07/27/25 Range/Units 09: Total Bilirubin 0.9 (0.0-1.0) mg/dL Direct Bilirubin 0.3 (0.0-0.5) mg/dL AST 65 H (5-31) U/L ALT 45 H (0-31) U/L Alkaline Phosphatase 150 H (39-117) U/L Albumin 4.5 (3.5-5.0) g/dL Urine 07/27/25 07/27/25 Range/Units 09:26 12:12 Urine Color Yellow Urine Appearance Clear Urine pH 7.0 (5.0-9.0) Ur Specific [place] >= 1.030 H (1.005-1.025) Urine Protein Negative (Neg-Trace) mg/dL Urine Glucose (UA) Negative (Negative) mg/dL Urine Test NEGATIVE (NEGATIVE) Imaging Abdomen CT scan report/results: report reviewed and image reviewed CT scan - pelvis: report reviewed and image reviewed Additional studies: Date of Service: 07/27/25 Reason for Exam: urinary sx septic EXAMINATION: CT ABDOMEN PELVIS WITH IV CONTRAST HISTORY: urinary sx septic COMPARISON: There are no prior studies for available comparison. TECHNIQUE: CT scan of the abdomen and pelvis was performed following administration of 85 mL Omnipaque 350 using standard departmental protocol. Coronal and sagittal reformatted images were generated and reviewed. Oral contrast material was not administered at the request of the referring physician. This CT exam was performed with one or more of the following dose reduction techniques: automated exposure control, adjustment of the mA and/or kV according to patient size, use of iterative reconstruction technique. DLP: 110 mGy-cm FINDINGS: LOWER CHEST: The visualized lung bases are clear. There is no pleural effusion. CARDIOVASCULATURE: The heart is normal in size. There is no pericardial effusion. LIVER: The liver is normal in size and contour. No liver mass is identified. The hepatic and portal veins are patent. There is periportal edema. GALLBLADDER / BILE DUCTS: There is pericholecystic fluid. No calcified gallstones are identified. There is no intra or extrahepatic biliary ductal dilatation. SPLEEN: The spleen is normal in size. No focal splenic lesion is identified. PANCREAS: The pancreas is unremarkable in appearance. ADRENAL GLANDS: Within normal limits. KIDNEYS/RETROPERITONEUM: There is heterogeneous perfusion of the right kidney, consistent with acute pyelonephritis. No renal calculi are identified. There is no hydronephrosis. No renal masses are identified. LYMPH NODES: No abdominal or pelvic lymphadenopathy. VASCULATURE: The abdominal aorta is normal in caliber. MESENTERY/PERITONEUM: There is right perinephric edema as well as fluid in the right paracolic gutter. There is no free intraperitoneal gas. STOMACH: The stomach is collapsed, limiting evaluation. SMALL BOWEL: The small bowel is normal in caliber. COLON: The colon is unremarkable. APPENDIX: Normal. URINARY BLADDER/PELVIC ORGANS: The urinary bladder is unremarkable. The uterus and ovaries are unremarkable. BONES / SOFT TISSUES: No suspicious bony or soft tissue abnormalities. IMPRESSION: Acute right pyelonephritis. Assessment and Plan (1) Pyelonephritis: Status: Acute (2) Sepsis: Status: Acute (3) Urinary tract infection: Status: Acute Plan Received IV Rocephen CTAP- heterogeneous perfusion of the right kidney, consistent with acute pyelonephritis. No renal calculi are identified. There is no hydronephrosis. UA negative, pt has been on bactrim urine and blood c/s pending Will follow Procedures Date of Service Date of Service: 07/27/25
[2025-07-27] MEDS: 0.9 % Sodium Chloride Flush 3 ML SYRINGE IVFLUSH ×2 (17:49→20:28)
[2025-07-27] MEDS: oxyCODONE HCl Immed Release 5 MG TABLET PO (17:52)
--- NOTE | 2025-07-27 19:04 | HO.NURTONUR ---
24 y/o F, A/ox3, Full Code Independent/ambulatory at baseline. Comes from home for UTI- on abx x3 days with no improvement, worsening dysuria/urgency/frequency. Also endorsing pelvic pain and R upper rib pain. Tachy upon arrival, HR 120s, oral temp 103.1, RR 20-25. Labs: WBC 15.3, lactic 2.3--> 1.4, LFTs elevated Reports: EKG- sinus tach, abd/pelvis CT- R pyelonephritis Bilateral 20g IV ACs IV Abx- ceftriaxone.
[2025-07-28] VITALS (7 sets, daily range): BP systolic 104–114; BP diastolic 55–63; PULSE 75–90; RESP 14–18; TEMP 36.1–37.1; O2SAT 95–100
--- NOTE | 2025-07-28 02:04 | PM.EVENT ---
Event Note Date of Service: 07/28/25 Event Note: Received report from nursing that patient febrile 100.1, feeling more and complaining of headache. Blood pressure also 98 systolic. Administered IV fluids via bolus and then hourly rate. In addition gave Toradol 15 mg IV x1. Patient is currently on ceftriaxone. Patient states her flank pain overall is improved. Time Spent With Patient Time: Total time managing care of this patient today ____ minutes.
[2025-07-28 05:52] LABS: Hematocrit 30.9 % (37.0-47.0); Hemoglobin 10.0 g/dl (12.0-16.0); Mean Corpuscular HGB Conc 32.4 g/dl (31.0-35.0); Mean Corpuscular Hemoglobin 28.7 pg (27.0-33.0); Mean Corpuscular Volume 88.5 fL (80.0-98.0); NRBC Abs Auto 0.000 X10*3/uL (0.0-0.012); NRBC Pct Auto 0.0 /100WBC (0.0-0.2); Platelet Count 238 X10*3/uL (160-400); Red Blood Count 3.49 X10*6/uL (4.20-5.50); White Blood Count 10.7 X10*3/uL (4.8-10.8)
[2025-07-28 06:04] LABS: Anion Gap 11 (12-20); Blood Urea Nitrogen 5 mg/dL (9-16); Calcium 7.8 mg/dL (8.4-10.2); Carbon Dioxide 19 mmol/L (22-29); Chloride 110 mmol/L (96-108); Creatinine Clr Calc Pharmacy 96.3; Estimated Glomerular Filt Rate > 60; Potassium 3.4 mmol/L (3.3-5.1); Sodium 137 mmol/L (135-145)
--- NOTE | 2025-07-28 10:17 | MHC.CM.PN ---
pt has own ride home is working and indepednt pr plan home n/s
--- NOTE | 2025-07-28 10:55 | P.PNIM_ITS ---
Subjective Subjective Date of Service: 07/28/25 Interval History: Patient is seen and examined. Reports mild suprapubic and right rib pain, leukocytosis improved. Patient reports that she is drinking, does not have much of an appetite. She denies any shortness of breath, chest pain, dizziness, headaches, fever or chills. Has been out of bed to void, no blood noted per patient's report. Her vitals are stable, no fever or tachycardia. No hypotension. Review of Systems Patient has no acute medical complaints at this time All other systems are reviewed and are negative Physical Exam 2 Exam: Exam: Alert and oriented X3, calm and cooperative. Answers questions. Neuro: CN II-X11 intact, no focal neurological deficits EYES: PERRLA, EOM intact ENT: MMM Cardiac: S1 S2 RRR, No ectopy Pulmonary: Lungs clear to auscultation, No increased WOB. Abdominal: BS active in all 4 quadrants, mild suprapubic tenderness and right rib tenderness. MSK: Strength 5/5 upper and lower extremities : Deferred Extremities: No edema in lower extremities. No calf tenderness. Psych: Mood stable, Quiet and cooperative. Skin: Warm and dry, Intact Vital Signs: Vital Signs: Last Vital Signs Temp 98.8 F 07/28/25 08:00 Pulse 89 07/28/25 08:00 Resp 17 07/28/25 08:00 BP 114/63 07/28/25 08:00 Pulse Ox 97 07/28/25 08:00 O2 Del Method Room Air 07/28/25 08:00 BMI result Body Mass Index 21.9 Objective Data Active Medications Acetaminophen (Acetaminophen 325 Mg Tablet) 650 mg PO Q6H PRN PRN Reason: Pain, Mild 1-3,fever,headache Last Admin: 07/28/25 00:23 Dose: 650 mg Documented By: KINGSLEY Calcium Carbonate (Calcium Carbonate 750 Mg Tab.Chew) 750 mg PO Q4H PRN PRN Reason: Heartburn Ceftriaxone Sodium 1 gm/ (Sodium Chloride) 50 mls @ 100 mls/hr IV Q24H [facility] Last Admin: 07/28/25 08:41 Dose: 100 mls/hr Documented By: LAKISHA Sodium Chloride (Ns) 1,000 mls @ 125 mls/hr IVCONT .Q8H [facility] Last Admin: 07/28/25 08:40 Dose: 125 mls/hr Documented By: LAKISHA Ketorolac Tromethamine (Ketorolac Tromethamine 15 Mg/Ml Vial) 15 mg IVPUSH Q6H PRN PRN Reason: Pain, Moderate(Pain Scale 4-6) Last Admin: 07/27/25 15:37 Dose: 15 mg Documented By: KELLY Magnesium Hydroxide (Milk Of Magnesia 30 Ml Oral.Susp) 30 ml PO DAILY PRN PRN Reason: Constipation Melatonin (Melatonin 3 Mg Tablet) 6 mg PO BEDTIME PRN PRN Reason: Insomnia Ondansetron HCl (Ondansetron Hcl 4 Mg/2 Ml Vial) 4 mg IVPUSH Q8H PRN PRN Reason: Nausea and Vomiting Oxycodone HCl (Oxycodone Hcl Immed Release 5 Mg Tablet) 5 mg PO Q6H PRN PRN Reason: Pain, Severe (Pain Scale 7-10) Last Admin: 07/27/25 17:52 Dose: 5 mg Documented By: KELLY Sodium Chloride (0.9 % Sodium Chloride Flush 3 Ml Syringe) 3 ml IVFLUSH [facility] Last Admin: 07/28/25 08:41 Dose: Not Given Documented By: LAKISHA Non-Admin Reason: IV Running Labs 07/28/25 05:35 07/28/25 05:35 Labs: Laboratory Results - last 24 hr 07/27/25 07/28/25 12:12 05:35 MCV 88.5 MCH 28.7 MCHC 32.4 RDW 14.9 Plt Count 238 MPV 9.8 Absolute Nucleated RBC 0.000 Nucleated RBC % (auto) 0.0 Anion Gap 11 L Estim Creat Clear Calc 96.3 Estimated GFR > 60 Random Glucose 108 Lactic Acid F/U @ 2Hr 1.4 Calcium 7.8 L D Urine Color Yellow Urine Appearance Clear Urine pH 7.0 Ur Specific [place] >= 1.030 H Urine Protein Negative Urine Glucose (UA) Negative Urine Ketones Negative Urine Blood Negative Urine Nitrite Negative Ur Leukocyte Esterase Negative Assessment and Plan (1) Pyelonephritis: Status: Acute Plan 24 year old women admitted with acute pyelonephritis Severe sepsis secondary to Pyelonephritis Admitted with fever, tachycardia, leukocytosis, lactic acidosis, transaminitis Leukocytosis resolved 10.7 this morning, no tachycardia, afebrile this morning. Continue IV Rocephin pending final culture Follow urine and blood cultures Pain management as needed with ketorolac and Tylenol Antiemetics Continue IV fluids-patient does not have appetite at this time. Patient was seen by Urology, recommendations appreciated Transaminitis Likely secondary to sepsis Follow Labs DVT prophylaxis with Early ambulation Full code Quality Stroke Does the patient have a stroke diagnosis?: No VTE Prior VTE?: No VTE Risk Level:: Medical - low VTE Device Contraindication: Treatment Not Indicated VTE Drug Contraindication: Treatment Not Indicated
[2025-07-28 11:51] LABS: Alanine Aminotransferase 82 U/L (0-31); Albumin Level 3.5 g/dL (3.5-5.0); Alkaline Phosphatase 147 U/L (39-117); Anion Gap 10 (12-20); Aspartate Amino Transferase 82 U/L (5-31); Blood Urea Nitrogen 4 mg/dL (9-16); Calcium 8.2 mg/dL (8.4-10.2); Carbon Dioxide 20 mmol/L (22-29); Chloride 109 mmol/L (96-108); Creatinine Clr Calc Pharmacy 97.5; Estimated Glomerular Filt Rate > 60; Potassium 3.2 mmol/L (3.3-5.1); Sodium 136 mmol/L (135-145); Total Protein 6.4 g/dL (6.5-8.0)
--- NOTE | 2025-07-28 13:32 | PM.EVENT ---
Event Note Date of Service: 07/28/25 Event Note: Patient's AST noted to be 65, admit now 82, her ALT is 45 now 82. She is reporting some right-sided pain, we will check an ultrasound to rule out cholelithiasis or liver pathology. Check a hepatitis panel. Patient provided with supplemental potassium, for potassium level of 3.2. Time Spent With Patient Time: Total time managing care of this patient today ____ minutes.
[2025-07-28] MEDS: Potassium Chloride ER 20 MEQ TAB.ER.PRT PO (17:35)
[2025-07-29 03:09] VITALS: BP 112/73; PULSE 75; RESP 14; TEMP 36; O2SAT 96
[2025-07-29 04:39] LABS: HBS Num1 > 1000.00 mIU/mL (0-7.99); HBc Num1 0.08 S/CO (0.00-0.79); HBsAGNum1 0.55 S/CO (0.00-0.99); Hepatitis A Antibody IgM 0.23 Index (0-0.79); Hepatitis B Surface Antigen Negative (Negative); ~HepC Num1 0.06 S/CO (0.00-0.79); ~Hepatitis A Antibody IgM Nonreactive (Nonreactive); ~Hepatitis B Surface Antibody REACTIVE (Nonreactive); ~Hepatitis C Antibody Nonreactive (Nonreactive)
[2025-07-29 06:46] LABS: MANUAL DIFF FLAG NO
[2025-07-29 06:49] LABS: Hematocrit 29.3 % (37.0-47.0); Hemoglobin 9.7 g/dl (12.0-16.0); Imm Gran Abs Auto 0.06 X10*3/uL (0.00-0.03); Imm Gran Pct Auto 0.6 % (0.0-0.4); Lymphocytes Absolute Auto 1.9 X10*3/uL (1.2-4.9); Mean Corpuscular HGB Conc 33.1 g/dl (31.0-35.0); Mean Corpuscular Hemoglobin 28.9 pg (27.0-33.0); Mean Corpuscular Volume 87.2 fL (80.0-98.0); NRBC Abs Auto 0.000 X10*3/uL (0.0-0.012); NRBC Pct Auto 0.0 /100WBC (0.0-0.2); Platelet Count 280 X10*3/uL (160-400); Red Blood Count 3.36 X10*6/uL (4.20-5.50); White Blood Count 9.6 X10*3/uL (4.8-10.8)
[2025-07-29 07:22] LABS: Alanine Aminotransferase 74 U/L (0-31); Albumin Level 3.3 g/dL (3.5-5.0); Alkaline Phosphatase 137 U/L (39-117); Anion Gap 12 (12-20); Aspartate Amino Transferase 51 U/L (5-31); Blood Urea Nitrogen 4 mg/dL (9-16); Calcium 8.3 mg/dL (8.4-10.2); Carbon Dioxide 19 mmol/L (22-29); Chloride 111 mmol/L (96-108); Creatinine Clr Calc Pharmacy 110.7; Estimated Glomerular Filt Rate > 60; Potassium 3.7 mmol/L (3.3-5.1); Sodium 138 mmol/L (135-145); Total Protein 6.2 g/dL (6.5-8.0)
[2025-07-29 07:41] VITALS: BP 117/66; PULSE 76; RESP 17; TEMP 37.1; O2SAT 97
[2025-07-29] MEDS: 0.9 % Sodium Chloride Flush 3 ML SYRINGE IVFLUSH (08:01)
[2025-07-29 08:07] LABS: Reticulocytes Absolute 0.012 X10*6/uL (0.026-0.095)
[2025-07-29 08:32] LABS: Iron 12 mcg/dL (30-160); Percent Iron Saturation 7 % (15-50); Total Iron Binding Capacity 178 mcg/dL (228-428); Unsaturated Iron Binding 166 ug/dL
[2025-07-29 08:48] LABS: Ferritin 229 ng/mL (10-122)
[2025-07-29 11:36] VITALS: BP 111/78; PULSE 70; RESP 17; TEMP 37.2; O2SAT 98
--- NOTE | 2025-07-29 11:49 | P.DS_ITS ---
DS: Providers Provider Date of admission: 07/27/25 12:18 Date of discharge: 07/29/25 Primary care physician: Kyle Stewart MD Consults: 07/27/25 12:20 Consult to Urology Routine Consulting Provider: [facility] Reason for consultation: 3rd uti DS: Diagnosis Discharge Diagnosis (1) Pyelonephritis: Status: Acute (2) Elevated transaminase level: Status: Acute (3) Severe sepsis: Status: Acute (4) Iron deficiency anemia: Status: Acute DS: Summary Hospital Course Hospital Course: From the history and physical by the admitting hospitalist, Elvie Whelan, 07/27/25: '24 year old women with no significant medical history presented to the ED with worsening urinary symptoms. She was treated for a UTI last at an urgent care office. She was started on Bactrim. She felt better the first few days but then had returning right rib pain, urinary frequency, dysuria, burning, nausea, pelvic pain and fevers. She denied flank pain but abd ct showed acute pyelonephritis. She mentioned that this is her 3rd UTI. Noted to have elevated white blood cell count, fever, tachycardia, transaminitis, lactic acidosis. She was started on IV Rocephin and she will be admitted for management of acute pyelonephritis.' 24 year-old woman admitted with severe sepsis from acute pyelonephritis. Treated with IV ceftriaxone with resolution of sepsis physiology and improvement in symptoms. Blood cultures negative at 48hr; urine culture growing Gram-negative rods. She was discharged on cefuroxime. Transaminases elevated, likely due to sepsis [hepatitis workup negative and liver US unremarkable]; to repeat LFTs in 1 week. Time Attestation Discharge Coordination Time (in mins): 35 Quality: Safe Use of Opioids Does Pt have an Active Cancer Diagnosis on the Problem List?: No Quality: Stroke Does the patient have a stroke diagnosis?: No Physical Exam Vital Signs: Vital Signs: Last Vital Signs Temp 98.9 F 07/29/25 11:36 Pulse 70 07/29/25 11:36 Resp 17 07/29/25 11:36 BP 111/78 07/29/25 11:36 Pulse Ox 98 07/29/25 11:36 O2 Del Method Room Air 07/29/25 11:36 BMI result Body Mass Index 21.9 Gen: in no acute distress HEENT: sclera anicteric, moist mucus membranes Neck: supple Lungs: clear to auscultation bilaterally Heart: regular rate and rhythm, no murmurs Abd: soft, non-tender, non-distended Ext: no edema Skin: warm/well-perfused Neuro: alert and oriented x3, no focal findings Psych: appropriate affect DS: Data Data Completed and Pending Completed studies during hospitalization [Text1]: Laboratory Results WBC 9.6 X10*3/uL (4.8-10.8) 07/29/25 06:04 RBC 3.36 X10*6/uL (4.20-5.50) L 07/29/25 06:04 Hgb 9.7 g/dl (12.0-16.0) L 07/29/25 06:04 Hct 29.3 % (37.0-47.0) L 07/29/25 06:04 MCV 87.2 fL (80.0-98.0) 07/29/25 06:04 MCH 28.9 pg (27.0-33.0) 07/29/25 06:04 MCHC 33.1 g/dl (31.0-35.0) 07/29/25 06:04 RDW 15.2 % (11.0-16.0) 07/29/25 06:04 Plt Count 280 X10*3/uL (160-400) 07/29/25 06:04 MPV 10.4 fL (9.4-12.3) 07/29/25 06:04 Immature Gran % (Auto) 0.6 % (0.0-0.4) H 07/29/25 06:04 Neut % (Auto) 67.3 % (45-73) 07/29/25 06:04 Lymph % (Auto) 19.8 % (20-40) L 07/29/25 06:04 [place] % (Auto) 8.3 % (2-11) 07/29/25 06:04 Eos % (Auto) 3.5 % (0-4) 07/29/25 06:04 Baso % (Auto) 0.5 % (0-2) 07/29/25 06:04 Lymph # (Auto) 1.9 X10*3/uL (1.2-4.9) 07/29/25 06:04 [place] # (Auto) 0.8 X10*3/uL (0.1-1.2) 07/29/25 06:04 Eos # (Auto) 0.3 X10*3/uL (0.0-0.4) 07/29/25 06:04 Baso # (Auto) 0.1 X10*3/uL (0.0-0.2) 07/29/25 06:04 Abs Immat Gran (auto) 0.06 X10*3/uL (0.00-0.03) H 07/29/25 06:04 Absolute Neuts (auto) 6.5 x10*3/uL (2.0-8.3) 07/29/25 06:04 Absolute Nucleated RBC 0.000 X10*3/uL (0.0-0.012) 07/29/25 06:04 Nucleated RBC % (auto) 0.0 /100WBC (0.0-0.2) 07/29/25 06:04 Absolute Retic 0.012 X10*6/uL (0.026-0.095) L 07/29/25 06:04 Percent Retic 0.4 % (0.5-1.8) L 07/29/25 06:04 Immature Retic Fraction 4.5 % (3.0-15.9) 07/29/25 06:04 Retic Hgb Equivalent 28.4 pg (30.0-35.0) L 07/29/25 06:04 Sodium 138 mmol/L (135-145) 07/29/25 06:04 Potassium 3.7 mmol/L (3.3-5.1) 07/29/25 06:04 Chloride 111 mmol/L (96-108) H 07/29/25 06:04 Carbon Dioxide 19 mmol/L (22-29) L 07/29/25 06:04 Anion Gap 12 (12-20) 07/29/25 06:04 BUN 4 mg/dL (9-16) L 07/29/25 06:04 Creatinine 0.74 mg/dL (0.5-1.4) 07/29/25 06:04 Estim Creat Clear Calc 110.7 07/29/25 06:04 Estimated GFR > 60 07/29/25 06:04 Random Glucose 98 mg/dL (60-115) 07/29/25 06:04 Lactic Acid 2.3 mmol/L (0.5-2.0) H* 07/27/25 09:26 Lactic Acid Cancelled 07/27/25 09:26 Lactic Acid F/U @ 2Hr 1.4 mmol/L (0.5-2.0) 07/27/25 12:12 Calcium 8.3 mg/dL (8.4-10.2) L 07/29/25 06:04 Magnesium 1.9 mg/dL (1.6-2.6) 07/27/25 09:26 Iron 12 mcg/dL (30-160) L 07/29/25 06:04 TIBC 178 mcg/dL (228-428) L 07/29/25 06:04 % Saturation 7 % (15-50) L 07/29/25 06:04 Unsat Iron Binding 166 ug/dL 07/29/25 06:04 Ferritin 229 ng/mL (10-122) H 07/29/25 06:04 Total Bilirubin 0.5 mg/dL (0.0-1.0) 07/29/25 06:04 Direct Bilirubin 0.3 mg/dL (0.0-0.5) 07/27/25 09:26 AST 51 U/L (5-31) H 07/29/25 06:04 ALT 74 U/L (0-31) H 07/29/25 06:04 Alkaline Phosphatase 137 U/L (39-117) H 07/29/25 06:04 Lactate Dehydrogenase 260 U/L (122-220) H 07/29/25 06:04 Total Protein 6.2 g/dL (6.5-8.0) L 07/29/25 06:04 Albumin 3.3 g/dL (3.5-5.0) L 07/29/25 06:04 Lipase 20 U/L (8-78) 07/27/25 09:26 Urine Color Yellow 07/27/25 12:12 Urine Appearance Clear 07/27/25 12:12 Urine pH 7.0 (5.0-9.0) 07/27/25 12:12 Ur Specific [place] >= 1.030 (1.005-1.025) H 07/27/25 12:12 Urine Protein Negative mg/dL (Neg-Trace) 07/27/25 12:12 Urine Glucose (UA) Negative mg/dL (Negative) 07/27/25 12:12 Urine Ketones Negative mg/dL (Negative) 07/27/25 12:12 Urine Blood Negative (Negative) 07/27/25 12:12 Urine Nitrite Negative (Negative) 07/27/25 12:12 Ur Leukocyte Esterase Negative (Negative) 07/27/25 12:12 Urine Test NEGATIVE (NEGATIVE) 07/27/25 09:26 Hepatitis A IgM Ab Nonreactive (Nonreactive) 07/28/25 14:52 Hep Bs Antigen Negative (Negative) 07/28/25 14:52 Hep Bs Antibody REACTIVE (Nonreactive) 07/28/25 14:52 Hep B Core Total Ab Nonreactive (Nonreactive) 07/28/25 14:52 Hepatitis C Ab (EIA) Nonreactive (Nonreactive) 07/28/25 14:52 Influenza Type A (PCR) NEGATIVE (Negative) 07/27/25 09:26 Influenza Type B (PCR) NEGATIVE (Negative) 07/27/25 09:26 RSV RNA Qual (PCR) NEGATIVE (Negative) 07/27/25 09:26 SARS-CoV-2 RNA (RT-PCR) NEGATIVE (Negative) 07/27/25 09:26 Impressions Abdomen/Pelvis CT 07/27/25 10:24 IMPRESSION: Acute right pyelonephritis. Electronically signed by: Eric North MD 07/27/2025 10:47 AM EST RP Abdomen Ultrasound 07/28/25 15:36 IMPRESSION: Contracted gallbladder. No cholelithiasis. Trace of pericholecystic fluid. Normal common bile duct. Electronically signed by: Matt Smith MD 07/28/2025 03:57 PM EST RP Discharge Plan Discharge Anticipated Discharge Date/Time: 07/29/25 11:31 Patient Disposition: Home, Self-Care Discharge Diagnosis: sepsis due to pyelonephritis elevated liver enzymes due to sepsis Referrals: Kyle Stewart MD [Primary Care Provider, [facility]] - 1 Week Discharge Medications: New cefuroxime axetil 500 mg tablet 500 mg PO BID Qty: 10 0RF ferrous sulfate 324 mg (65 mg iron) tablet,delayed release (DR/EC) 324 mg PO Q OTHER DAY Qty: 15 0RF Discontinued sulfamethoxazole-trimethoprim 800-160 mg tablet 1 tab PO BID Discharge Orders: Discharge Order (Routine); Ordered 07/29/25 Ordered By: Hans Bullard Diet: Advance to usual diet Activity on Discharge: As tolerated Stand Alone Forms: Patient Portal Discharge page Print Language: Jamaican Other Ambulatory Orders: Liver Panel (Routine) Timeframe: 1 Week Facility: [facility] - Location: Laboratory Ordered By: Hans Bullard Care Plan Goals: recover from infection Health Concerns: sepsis due to pyelonephritis elevated liver enzymes due to sepsis Plan of Treatment: take cefuroxime axetil 500 mg twice daily for 5 days take acetaminophen or ibuprofen for pain control drink plenty of fluids repeat liver panel in 1 week Please follow up with your primary care doctor within 1 week. Return to the hospital if you experience recurrent or worsening symptoms. Assessment: See Discharge Summary.
--- NOTE | 2025-07-29 12:07 | MHC.CM.PN ---
PT CLEARED TO DC HOME, SELF CARE PT TO ARRANGE TRANSPORT
== END 2025-07-29 13:37 | disposition home or self-care (01) | DRG 872 ==
LOC: HO.ED 10:57 → HO.EDOVER 12:31 → HO.S3 19:08
PROVIDERS: Nurse Practitioner Family; Physician Assistant; Admitting Provider Nurse Practitioner Acute Care; Emergency Provider Emergency Medicine Emergency Medical Services; PCP Family Medicine; Visit Provider Family Medicine
DX: A41.9 Sepsis, unspecified organism (principal); N10 Acute pyelonephritis; R65.20 Severe sepsis without septic shock; B96.20 Unspecified Escherichia coli [E. coli] as the cause of diseases classified elsewhere; Z20.822 Contact with and (suspected) exposure to COVID-19; Z87.440 Personal history of urinary (tract) infections
CPT/HCPCS: 36415; 74177; 76705; 80048; 80053; 81003; 81025; 82248; 82728; 83540; 83605; 83615; 83690; 83735; 85025; 85027; 85045; 86704; 86706; 86709; 86803; 87040; 87086; 87088; 87186; 87340; 87637; 93005; 99285; J0131; J0696; J1885; J2270; Q9967

== ENCOUNTER → 2025-07-27 09:19 | Outpatient (BNV) | payer MEDICAID, SELFPAY | PROVIDERS: Emergency Provider Emergency Medicine Emergency Medical Services; PCP Family Medicine; Visit Provider Internal Medicine Cardiovascular Disease | DX: R00.0 Tachycardia, unspecified (principal) | CPT/HCPCS: 93010 ==

== ENCOUNTER → 2025-07-27 09:21 | Outpatient (BNV) | payer MEDICAID, SELFPAY | PROVIDERS: Emergency Provider Emergency Medicine Emergency Medical Services; PCP Family Medicine; Visit Provider Radiology Diagnostic Radiology | DX: N10 Acute pyelonephritis (principal) | CPT/HCPCS: 74177 ==

== ENCOUNTER 2025-07-27 12:18 | Outpatient (BNV) | payer OTHER, SELFPAY | END 2025-07-28 15:36 | PROVIDERS: Admitting Provider Nurse Practitioner Acute Care; Emergency Provider Emergency Medicine Emergency Medical Services; PCP Family Medicine; Visit Provider Radiology Diagnostic Radiology | DX: K82.0 Obstruction of gallbladder (principal) | CPT/HCPCS: 76705 ==

== ENCOUNTER → 2025-07-27 12:18 | Outpatient (BNV) | payer MEDICAID, SELFPAY | PROVIDERS: Admitting Provider Nurse Practitioner Acute Care; Emergency Provider Emergency Medicine Emergency Medical Services; PCP Family Medicine; Visit Provider Nurse Practitioner Family | DX: N12 Tubulo-interstitial nephritis, not specified as acute or chronic (principal) | CPT/HCPCS: 99232; 99499 ==

== ENCOUNTER 2025-08-10 16:26 | Outpatient (REF) | payer OTHER, SELFPAY ==
--- OUTSIDE RECORDS SUMMARY | 2025-08-10 10:15 | XMS_ITS | Encounter Summary ---
Author Organization [employer] Address [address] [place] [address] Care Team Providers Care Box Stamper Name Role Phone Jacquelyn Perezupe DRAFTER PATENT Primary Care Provider [phone] Encounter Details Date Type Department Care Team (Latest Contact Info) Description 08/10/2025 10:15 AM EST Procedure Visit [facility] [address] [place] [address] Ramiroradha Maria GESE caal [address] [place] [address] Pap smear for cervical cancer screening (Primary Dx); Encounter for immunization; Vaginal discharge Social History Tobacco Use Types Packs/Day Years Used Date Smoking Tobacco: Never Passive Smoke Exposure: Never Smokeless Tobacco: Never Tobacco Cessation:Counseling Given: Not Answered Comments:Once daily Alcohol Answer [...] Sign Reading Time Taken Comments Blood Pressure 98/46 08/10/2025 10:26 AM EST Pulse 72 08/10/2025 10:26 AM EST Temperature 36.8 C (98.2 F) 08/10/2025 10:26 AM EST Respiratory Rate 16 08/10/2025 10:26 AM EST Oxygen Saturation 99% 08/10/2025 10:26 AM EST Inhaled Oxygen Concentration - - Weight 62.3 kg (137 lb 4 oz) 08/10/2025 10:26 AM EST Height 167.6 cm (5' 6 ) 08/10/2025 10:26 AM EST Body Mass Index 22.15 08/10/2025 10:26 AM EST documented in this encounter Plan of Treatment Upcoming Encounters Date Type Department Care Team (Late st Contact Info) Description 08/18/2025 10:00 AM EST Immunization [facility] [address] [place], [place] [id number] 12/23/2025 3:00 PM EDT Office Visit [facility] OPTOMETRY [address] [place], [place] [id number] Jermaine, Gayle, OD [address] [place] [address] Scheduled Orders Name Type Priority Associated Diagnoses Order Schedule Pap Smear Pathology and Cytology Routine Pap smear for cervical cancer screening Ordered: 08/10/2025 Bacterial Vaginosis Panel Microbiology Routine Vaginal discharge Ordered: 08/10/2025 documented as of this encounter Visit Diagnoses Diagnosis Pap smear for cervical cancer screening- Primary Screening for malignant neoplasm of the cervix Encounter for immunization Vaginal discharge Leukorrhea, not specified as infective documented in this encounter Additional Health Concerns Assessment Noted Time PHQ-9 Depression Total Score: 1 06/30/20 9:04 AM EST documented as of this encounter Care Teams Box Stamper Relationship Specialty Start Date End Date Maria G Perez FNP [address] [place] [id number] PCP - General Family Medicine 06/30/25 documented as of this encounter
--- OUTSIDE RECORDS SUMMARY | 2025-08-10 17:04 | XMS_ITS | Clinical Summary ---
Author Organization [facility] Address [address] [place] [address] Phone Care Team Providers Care Derivatives Trader Name Role Phone Unavailable Primary Care Provider [...]
--- OUTSIDE RECORDS SUMMARY | 2025-08-10 17:04 | XMS_ITS | Encounter Summary ---
Author Organization [employer] Address [address] [place] [address] Care Team Providers Care Crm Manager Name Role Phone Maria G Perez MANAGER WAREHOUSE Primary Care Provider [phone] Encounter Details Date Type Department Care Team (Latest Contact Info) Description 08/10/2025 Travel Social History Tobacco Use Types Packs/Day Years Used Date Smoking Tobacco: Never Passive Smoke Exposure: Never Smokeless Tobacco: Never Comments:Once daily Alcohol Answer Date Recorded How [...] is your housing situation today? I have conchitaashwini abdi 06/30/[address] you [...] AM EDT documented as of this encounter Plan of Treatment Upcoming Encounters Date Type Department Care Team (Late st Contact Info) Description 08/18/2025 10:00 AM EST Immunization [facility] [address] [place] [address] 12/23/2025 3:00 PM EDT Office Visit [facility] OPT[facility]ET[facility] [address] [place] [address] Jermaine, Gayle, OD [address] [place] [address] documented as of this encounter Visit Diagnoses Not on filedocumented in this encounter Additional Health Concerns Assessment Noted Time PHQ-9 Depression Total Score: 1 06/30/20 25 9:04 AM EST documented as of this encounter Care Teams Crm Manager Relationship Specialty Start Date End Date Maria G Perez FNP [address] [place] [address] PCP - General Family Medicine 06/30/25 documented as of this encounter
--- OUTSIDE RECORDS SUMMARY | 2025-08-10 17:04 | XMS_ITS | Encounter Summary ---
Author Organization [employer] Address [address] [place] [address] Care Team Providers Care Robotic Toy Inventor Name Role Phone Maria G Perez MECHANICAL ORDNANCE ASSEMBLER Primary Care Provider [phone] Reason for Visit * Reason Onset Date Comments CHARTPREP 08/09/2025 Encounter Details Date Type Department Care Team ([facility] Contact Info) Description 08/09/2025 Telephone [facility] [address] [place] [address] Maria G Perez FNP [address] [place] [address] CHARTPREP Social History Tobacco Use Types Packs/Day Years [...] encounter Miscellaneous Notes * Telephone Encounter - José Hartman [place] - 08/09/2025 9:21 AM EST Chart Prep Labs: done except Bilirubin direct Images: not applicable Referrals:Optometry appointment pending for 12/23/25 @ 3:00 pm Vaccines due: MCV4 Screenings: LMP,family planning Overdue care gaps: Not applicable documented in this encounter Plan of Treatment Upcoming Encounters Date Type Department Care Team (Late st Contact Info) Description 08/18/2025 10:00 AM EST Immunization [facility] [address] [place] [address] 12/23/2025 3:00 PM EDT Office Visit [facility] OPTOMETRY [address] [place] [address] Gayle Dean, OD [address] [place] [address] documented as of this encounter Visit Diagnoses Not on filedocumented in this encounter Additional Health Concerns Assessment Noted Time PHQ-9 Depression Total Score: 1 06/30/20 9:04 AM EST documented as of this encounter Care Teams Robotic Toy Inventor Relationship Specialty Start Date End Date Maria G Perez FNP [address] [place] [id number] PCP - General Family Medicine 06/30/25 documented as of this encounter
--- OUTSIDE RECORDS SUMMARY | 2025-08-10 17:04 | XMS_ITS | Clinical Summary ---
Author Organization [employer] Address [address] [place] [address] Care Team Providers Care Piano And Organ Refinisher Name Role Phone Maria G Perez UNDERGRADUATE INTERN Primary Care Provider [phone] Allergies No known active allergies Medications cholecalciferol (Vitamin D-3) 50 MCG (1999) capsuleIndicati ons:Vitamin D deficiency Take 1 capsule (50 mcg) by mouth Once per day. 90 capsule 07/02/2025 Active Active Problems Problem Noted Date Diagnosed Date Dysmenorrhea 07/02/2025 Blurry vision, bilateral 07/02/2025 Hyperbilirubinemia 07/02/2025 Vitamin D deficiency 07/02/2025 Encounters Date Type Department Care Team Description 08/10/2025 10:15 AM EST Procedure Visit [facility] [address] [place] [phone] Maria G Perez FNP Pap smear for cervical cancer screening (Primary Dx); Encounter for immunization; Vaginal discharge 08/10/2025 Travel 08/09/2025 Telephone [facility] [address] [place] [phone] Maria G Perez FNP CHARTPREP 07/26/2025 Telephone [facility] [address] [place] [phone] Maria G Perez FNP FYI 07/20/2025 9:30 AM EST Immunization [facility] [address] [place] [phone] Encounter for immunization 07/20/2025 Travel 07/19/2025 Telephone [facility] [address] [place] [phone] Maria G Perez FNP 07/05/[address] [address] Maria G Perez FNP Results; Lab Orders 06/30/2025 9:00 AM EST Office Visit [address] [address] Maria G Perez FNP Adult wellness visit (Primary Dx); Encounter for vaccination; Encounter for immunization; Blurry vision, bilateral; Dysmenorrhea; Hyperbilirubinemia; Vitamin D deficiency 06/30/2025 Travel 06/29/[address] [phone] Maria G Perez FNP Chart Prep 06/23/2025 Patient Outreach [facility] [address] [place] [address] Maria G Perez FNP Pre-visit Planning (SDOH unable to reach [facility]) 05/18/[address] [address] Gianluca Baig MD Call Back Request; CHW - New Patient Assistance from Last 3 Months Immunizations Immunization Administration Dates Next Due DTaP, 5 pertussis antigens 04/15/2006,,07/08/2002,05/04,03/03/2002 Hep B, Adolescent or Pediatric 10/01/2002,2001,2001 HepB-CpG 08/10/2025,07/20/2025 Hib (PRP-T) 04/02/2003, 2,05/04/2002,03/03 IPV 04/15/2006, 3,05/04/2002,03/03 Influenza Injectable Quadriv alant Preservative Free IIV4 MDCK 09/28/2020 Influenza, IIV3, injectable 08/06/2003 Influenza, seasonal, injecta ble, preservative free 06/30/2025 MMR 04/15/2006,01/05/2003 Meningococcal Polysaccharide A,C,Y,W-135 TT Conjugate 08/10/2025 Pfizer Covid-19 Vaccine 12+ 06/30/2025 Pneumococcal Conjugate PCV 7 08/06/2003, 07/08/2002,05/04/2002,03/03 Tdap 07/20/2025 Varicella 01/05/2003 Family History Medical History Relation [...] Mass Index 22.15 08/10/2025 10:26 AM EST Plan of Treatment Upcoming Encounters Date Type Department Care Team (Late st Contact Info) Description 08/18/2025 10:00 AM EST Immunization [facility] [address] [place] [address] 12/23/2025 3:00 PM EDT Office Visit [facility] [address] [place] [address] Jermaine, Gayle, OD [address] [place] [address] Health Maintenance Due Date Last Done Comments Family Planning (PISQ) 2016 Meningococcal B Vaccine (1 of 2 - Standard) 2017 Pap Smear 2022 Alcohol/Substance Use Screening 06/30/2026 06/30/2025 Chlamydia and Gonorrhea Screening 06/30/2026 06/30/2025 Depression Screening 06/30/2026 06/30/2025, 06/30/20 25 Disability Screening 06/30/2026 06/30/2025 SDOH Screening 06/30/2026 06/30/2025 Tobacco Screening 08/10/2026 08/10/2025 DTaP/Tdap/Td Vaccines (8 - Td or Tdap) 07/20/2035 07/20/2025, 11/23/2013, 04/15/2006, Additional history exists Zoster Vaccines (1 of 2) 12/31/2051 RSV Patients and Patients Aged 60 years or older (1 - 1-dose 75+ series) 2076 HIB Vaccines Completed 04/02/2003, 06/20, 05/04/2002, Additional history exists Pneumococcal Vaccine: Pediatrics (0 to 5 Years) and At-Risk Patients (6 to 49) Years Aged Out 08/06/2003, 07/08/2002, 05/04/2002, Additional history exists No longer eligible based on patient's age to complete this topic IPV Vaccines Completed 04/15/2006, 09/19, 05/04/2002, Additional history exists HPV Vaccines Completed 05/14/2012, 05/19, 04/02/2011 Hepatitis A Vaccines Completed 12/21/2016, 11/24/19 14 COVID-19 Vaccine Completed 06/30/2025, 03/2023, 11/09/2021, Additional history exists HIV Screening Completed 06/30/2025 Hepatitis C Screening Completed 06/30/2025 Influenza Vaccine Completed 06/30/2025, , 07/26/2023, Additional history exists Hepatitis B Vaccines Completed 08/10/2025, 07/20/2025, 10/01/2002, Additional history exists Meningococcal Vaccine Completed 08/10/2025 , 09/02/2018, 11/23/2013 RSV under 20 months Aged Out No longe r eligible based on patient's age to complete this topic Rotavirus Vaccines Aged Out No longer eligible based on patient's age to complete this topic Procedures Procedure Name Priority Date/Time Associated Diagnosis Comments T-SPOT(R).TB Routine 06/30/2025 10:26 AM EST Adult wellness visit VITAMIN D,25-OH,TOTAL,IA Routine 06/30/2025 10:26 AM EST Adult wellness visit LIPID PANEL, STANDARD Routine 06/30/2025 10:26 AM EST Adult wellness visit HIV 1/2 ANTIGEN/ANTIBODY, FOURTH GENERATION W/RFL Routine 06/30/2025 10:26 AM EST Adult wellness visit CBC WITH AUTO DIFFERENTIAL Routine 06/30/2025 10:26 AM EST Adult wellness visit HEPATITIS C AB W/REFL TO HCV RNA, QN, PCR Routine 06/30/2025 10:26 AM EST Adult wellness visit HEPATITIS B SURFACE ANTIGEN, EIA Routine 06/30/2025 10:26 AM EST Adult wellness visit HEPATITIS B SURFACE ANTIBODY, QUALITATIVE Routine 06/30/2025 10:26 AM EST Adult wellness visit HEPATITIS B CORE AB TOTAL Routine 06/30/2025 10:26 AM EST Adult wellness visit COMPREHENSIVE METABOLIC PANEL Routine 06/30/2025 10:26 AM EST Adult wellness visit CHLAMYDIA/TRICHOMONAS/ NEISSERIA GONORRHOEAE, PCR, URINE Routine 06/30/2025 10:25 AM EST Adult wellness visit from Last 3 Months Results * (ABNORMAL) Vitamin D, 25-Hydroxy, Total, Immunoassay (06/30/2025 10:26 AM EST) Pathologist [facility] Vitamin D 25-OH Total 21.0(L) >30 ng/mL [facility] Comment: Health Based Reference Values*< 20 ng/mL Hndyqonle73-44 ng/mL Insufficient> 30 ng/mL Sufficient*Manolo SURESH. N Engl J Med. 2007;357:266-280There is no well-established upper level of normal vitamin Dlevels. Some laboratories use 50 ng/mL as an upper limit ofnormal. However, toxicity is patient-dependent and may occurat any level. Careful correlation with the patient'spresentation is necessary and, if there is concern forvitamin D toxicity, treatment should be consideredirrespective of the serum level.Care must be taken in interpreting Vitamin D results fromdifferent laboratories and methodologies. Published datademonstrated that results from patients undergoinghemodialysis may show a negative bias when tested withvarious automated 25-OH vitamin D assays when compared toLC-MS/MS.When testing samples from patients whose predominant form ofVitamin D is Vitamin D2, such as patients receiving VitaminD2 supplementation, results that are subtherapeutic shouldbe confirmed with another method such as LC-MS/MS. Blood Venous blood specimen / Unknown 06/30/2025 10:26 AM EST 06/30/2025 11:58 AM EST Maria Gantonia Arcosmargarita [facility] LAB BLOOD ORDERABLES Final Res ult [facility] [address] [place] [address] [phone] * T-SPOT??.TB (06/30/2025 10:26 AM EST) [facility] T Spot TB Negative Negative [facility] Comment:A negative test resu lt does not exclude the possibilityof exposure to or infection with Mycobacteriumtuberculosis (M. tuberculosis). Patients with recentexposure to TB infected individuals exhibiting anegative T-SPOT.TB result should be considered forretesting within 6 weeks or if other relevant clinicalsymptoms indicate. Results from T-SPOT.TB testing mustbe used in conjunction with each individual'sepidemiological history, current medical status,and results of other diagnostic evaluations.The T-SPOT.TB test is qualitative and results arereported as positive, borderline, or negative, giventhat the test controls perform as expected. In linewith the Centers for Disease Control and Prevention's2010 recommendation to report quantitative measurementsalongside the qualitative result, the laboratoryprovides spot counts for informational purposes only.The T-SPOT.TB test should not be interpreted as aquantitative test. TS PANEL A 0 [facility] TS PANEL B 0 [facility] Negative Control Passed [facility] Positive Control Passed [facility] Comment:For additional infor david, please refer tohttp://education.AMEE/faq/CVM987(This link is being provided for informational/educational purposes only.)THIS TEST WAS PERFORMED AT:[facility]/[address]ARAY[id number] [place] [id number] MENDIETA MD,PHD 06/30/2025 10:2 6 AM EST 06/30/2025 11:49 AM EST Maria G Perez UNDERGRADUATE INTERN LAB BLOOD ORDERABLES Final Res ult [facility] [address] [place] [phone] [phone] * (ABNORMAL) CBC auto differential (06/30/2025 10:26 AM EST) White Blood Count 5.2 4.8 - 10.8 X10*3/uL [facility] Red Blood Count 4.43 4.20 - 5.50 X10*6/uL [facility] Hemoglobin 12.9 12.0 - 16.0 g/dl [facility] Hematocrit 40.6 37.0 - 47.0 % [facility] Mean Corpuscular Volume 91.6 80.0 - 98.0 fL [facility] Mean Corpuscular Hemoglobin 29.1 27.0 - 33.0 pg [facility] Mean Corpuscular HGB Conc 31.8 31.0 - 35.0 g/dl [facility] Red Cell Distribution Width 14.5 11.0 - 16.0 % [facility] Platelet Count 348 160 - 400 X10*3/uL [facility] Mean Platelet Volume 10.6 9.4 - 12.3 fL [facility] Neutrophils Percent Auto 37.3(L) 45 - 73 % [facility] Imm Gran Pct Auto 0.2 0.0 - 0.4 % [facility] Lymphocytes Percent Auto 45.8(H) 20 - 40 % [facility] Monocytes Percent Auto 5.6 2 - 11 % [facility] Eosinophils Percent Auto 10.0(H) 0 - 4 % [facility] Basophils Percent Auto 1.1 0 - 2 % [facility] NRBC Pct Auto 0.0 0.0 - 0.2 /100WBC [facility] Neutrophils Absolute Auto 2.0 2.0 - 8.3 x10*3/uL [facility] Imm Gran Abs Auto 0.01 0.00 - 0.03 X10*3/uL [facility] Lymphocytes Absolute Auto 2.4 1.2 - 4.9 X10*3/uL [facility] Monocytes Absolute Auto 0.3 0.1 - 1.2 X10*3/uL [facility] Eosinophils Absolute Auto 0.5(H) 0.0 - 0.4 X10*3/uL [facility] Basophils Absolute Auto 0.1 0.0 - 0.2 X10*3/uL [facility] NRBC Abs Auto 0.000 0.0 - 0.012 X10*3/uL [facility] Blood Venous blood specimen / Unknown 06/30/2025 10:26 AM EST 06/30/2025 11:49 AM EST [employer] [facility] LAB BLOOD ORDERABLES Final Res ult Performing Organization Address [facility] Co de Phone Number [facility] [address] [place] [phone] * Hepatitis C Antibody with Reflex to HCV, RNA, Quantitative, Real-Time PCR (06/30/2025 10:26 AM EST) Pathologist [facility] Hepatitis C Antibody Nonreactive Nonreactive [facility] Comment:Antibodies to HCV no t detected; does not exclude early acuteHCV infection. Blood Venous blood specimen / Unknown 06/30/2025 10:26 AM EST 06/30/2025 11:49 AM EST [email or web address] LAB BLOOD ORDERABLES Final Res ult Performing Organization Address City/[facility] Co de Phone Number [facility] [address] [place] [phone] * Hepatitis B surface antigen, EIA (06/30/2025 10:26 AM EST) Pathologist [facility] Hepatitis B Surface Ag Negative Negative [facility] Blood Venous blood specimen / Unknown 06/30/2025 10:26 AM EST 06/30/2025 11:49 AM EST [facility] Final Res ult Performing Organization Address [facility] Co de Phone Number [facility] [address] [place] [phone] * Hepatitis B Core Antibody, Total (06/30/2025 10:26 AM EST) Pathologist [facility] Hepatitis B Core Antibody Nonreactive Nonreactive [facility] Blood Venous blood specimen / Unknown 06/30/2025 10:26 AM EST 06/30/2025 11:49 AM EST [facility] LAB BLOOD ORDERABLES Final Res ult Performing Organization Address [facility] de Phone Number [facility] [address] [place] [phone] * HIV-1/2 Antigen and Antibodies, Fourth Generation, with Reflexes (06/30/2025 10:26 AM EST) Pathologist [facility] HIV AB/AG Nonreactive Nonreactive [facility] Comment:HIV-1 p24 Ag and/or HIV-1/HIV-2 Ab not detected.A test result that is nonreactive does not exclude thepossibility of exposure to or infection with HIV-1 and/orHIV-2. Nonreactive results in this assay for individualswith prior exposure to HIV-1 and/or HIV-2 may be due toantigen and antibody levels that are below the limit ofdetection of this assay.The [employer] HIV Ag/Ab Combo assay result andsupplemental assay results should be interpreted inconjunction with the patient's clinical presentation,history and other laboratory results. If the results areinconsistent with clinical evidence, additional testing issuggested to confirm the result. Blood Venous blood specimen / Unknown 06/30/2025 10:26 AM EST 06/30/2025 11:49 AM EST Maria G [facility] LAB BLOOD ORDERABLES Final Res ult Performing Organization Address [facility] Co de Phone Number [facility] [address] [place] [phone] * Hepatitis B Surface Antibody, Qualitative (06/30/2025 10:26 AM EST) Pathologist [facility] ~Hepatitis B Surface Antibody NONREACTIVE Nonreactive [facility] Comment:Nonreactive: < 8.00 mIU/mL Blood Venous blood specimen / Unknown 06/30/2025 10:26 AM EST 06/30/2025 11:49 AM EST [facility] LAB BLOOD ORDERABLES Final Res ult Performing Organization Address [facility] de Phone Number [facility] [address] [place] [phone] * (ABNORMAL) Lipid Panel, Standard (06/30/2025 10:26 AM EST) Pathologist [facility] Triglycerides 45 <150 mg/dL [facility] Comment:Desirable Triglyceri de: less than 150 mg/dLBorderline High Triglyceride 150-199 mg/dLHigh Triglyceride: 200-499 mg/dLVery High Triglyceride: greater than or equal to 5OO mg/dL Cholesterol 199 <200 mg/dL [facility] Comment:Desirable Cholestero l: less than 200 mg/dLBorderline High Cholesterol: 200-239 mg/dLHigh Cholesterol: greater than 239 mg/dL LDL Cholesterol Calculated 110(H) <100 mg/dL [facility] Comment:Desirable LDL: less than 100 mg/dLNear Optimal/Above Optimal LDL: 110- 129 mg/dLBorderline High LDL: 130-159 mg/dLHigh LDL: 160-189 mg/dLVery High LDL: greater than or equal to 190 mg/dL HDL Cholesterol 80 >40 mg/dL [facility] Comment:Desirable HDL: great er than 40 mg/dL Note: This HDL assay may give artificially low results in patients with liver disease. Blood Venous blood specimen / Unknown 06/30/2025 10:26 AM EST 06/30/2025 11:58 AM EST us Maria G Perez UNDERGRADUATE INTERN LAB BLOOD ORDERABLES Final Res ult [facility] [address] [place] [phone] * (ABNORMAL) Comprehensive Metabolic Panel (06/30/2025 10:26 AM EST) Sodium 138 135 - 145 mmol/L [facility] Potassium 3.8 3.3 - 5.1 mmol/L [facility] Chloride 105 96 - 108 mmol/L [facility] Carbon Dioxide 26 22 - 29 mmol/L [facility] Anion Gap 11(L) 12 - 20 [facility] Urea Nitrogen (BUN) 12 9 - 16 mg/dL [facility] Creatinine, Serum 0.82 0.5 - 1.4 mg/dL [facility] Estimated Glomerular Filt Rate >60 [facility] Comment:Chronic Kidney Disea se: Estimated GFR < 60 mL/min/1.53t6Cxcsuu Kidney Disease: Estimated GFR < 15 mL/min/1.73m2 Glucose 88 60 - 115 mg/dL [facility] Calcium 9.8 8.4 - 10.2 mg/dL [facility] Bilirubin, Total 2.3(H) 0.0 - 1.0 mg/dL [facility] Comment:Slight Icterus. Aspartate Amino Transferase 30 5 - 31 U/L [facility] Alanine Aminotransferase 20 0 - 31 U/L [facility] Total Protein 8.2(H) 6.5 - 8.0 g/dL [facility] Albumin Level 5.3(H) 3.5 - 5.0 g/dL [facility] Alkaline Phosphatase 67 39 - 117 U/L [facility] Blood Venous blood specimen / Unknown 06/30/2025 10:26 AM EST 06/30/2025 11:58 AM EST Maria G Perez [facility] LAB BLOOD ORDERABLES Final Res ult [facility] [address] [place] [phone] [phone] * Chlamydia/N. Gonorrhoeae, PCR, Urine (06/30/2025 10:25 AM EST) CT PCR, Urine NOT DETECTED Not Detect. [facility] Comment:A not detected test result does not exclude the possibilityof infection because test results can be affected byimproper specimen collection, concurrent antibiotic therapy,or the number of organisms in the specimen which may bebelow the sensitivity of the test. As with many diagnostictests, results from the Xpert CT/NG assay should beinterpreted in conjunction with other laboratory andclinical data available to the clinician.The Xpert CT/NG assay should not be used for the evaluationof suspected sexual abuse or for other medico-legalindications. Additional testing is recommended in anycircumstance when false positive or false negative resultscould lead to adverse medical, social or psychologicalconsequences. NG PCR, Urine NOT DETECTED Not Detect. [facility] Comment:A not detected test result does not exclude the possibilityof infection because test results can be affected byimproper specimen collection, concurrent antibiotic therapy,or the number of organisms in the specimen which may bebelow the sensitivity of the test. As with many diagnostictests, results from the Xpert CT/NG assay should beinterpreted in conjunction with other laboratory andclinical data available to the clinician.The Xpert CT/NG assay should not be used for the evaluationof suspected sexual abuse or for other medico-legalindications. Additional testing is recommended in anycircumstance when false positive or false negative resultscould lead to adverse medical, social or psychologicalconsequences. Urine (Urine, Random) 06/30/2025 10:25 AM EST 06/30/2025 11:43 AM EST Maria G [facility] LAB URINE ORDERABLES Final Res ult [facility] [address] [place] [address] [phone] from Last 3 [place] [phone] Care Teams Piano And Organ Refinisher Relationship Specialty Start Date End Date Maria G Perez FNP [address] [place] [phone] PCP - General Family Medicine 06/30/25
--- OUTSIDE RECORDS SUMMARY | 2025-08-10 17:04 | XMS_ITS | Encounter Summary ---
Author Organization [facility] Address [address] [place] [phone] Phone Care Team Providers Care Medical Cost Consultant Name Role Phone Gayathri Way NP Primary Care Provider Naveen preston Encounter Details Date Type Department Care Team (Late st Contact Info) Description 04/04/2017 Conversion Encounter [facility] - [address] [address] Social History Tobacco Use Types Packs/Day Years [...] on filedocumented in this encounter Care Teams Medical Cost Consultant Relationship Specialty Start Date End Date Gayathri Way NP PCP - General 03/29/17 09/27/22 documented as of this encounter
[2025-08-10 17:54] LABS: Bacterial Vaginosis PCR POSITIVE (Negative); Candida Group PCR DETECTED (Not Detect); Candida glab krusei PCR NOT DETECTED (Not Detect); Trichomonas vaginalis PCR NOT DETECTED (Not Detect)
== END 2025-08-10 16:27 ==
LOC: HO.HHCLNP 16:26
PROVIDERS: Visit Provider Nurse Practitioner Family
DX: Z12.4 Encounter for screening for malignant neoplasm of cervix (principal); Z20.2 Contact with and (suspected) exposure to infections with a predominantly sexual mode of transmission; N89.8 Other specified noninflammatory disorders of vagina
CPT/HCPCS: 81515; 88175